=== PATIENT | male | born 1985 | race African-American/Black ===

== ENCOUNTER → 2020-03-09 10:31 | Outpatient (BNVA) | payer MEDICAID, SELFPAY | PROVIDERS: PCP Internal Medicine; Referring Provider Internal Medicine; Visit Provider Urology | DX: D57.1 Sickle-cell disease without crisis (principal); N48.30 Priapism, unspecified | CPT/HCPCS: 99212; J9217 ==

== ENCOUNTER → 2020-09-23 10:59 | Outpatient (BNVA) | payer MEDICAID, SELFPAY | PROVIDERS: PCP Internal Medicine; Visit Provider Urology ==

== ENCOUNTER → 2020-10-05 11:30 | Outpatient (BNVA) | payer MEDICAID, SELFPAY | PROVIDERS: PCP Internal Medicine; Visit Provider Urology | DX: N48.30 Priapism, unspecified (principal) | CPT/HCPCS: 96402; J9217 ==

== ENCOUNTER → 2021-12-08 11:26 | Outpatient (BNVA) | payer MEDICAID, SELFPAY | PROVIDERS: PCP Internal Medicine; Visit Provider Urology | DX: N48.30 Priapism, unspecified (principal); D57.1 Sickle-cell disease without crisis | CPT/HCPCS: 99212 ==

== ENCOUNTER → 2022-04-07 08:12 | Outpatient (BNVA) | payer MEDICAID, SELFPAY | PROVIDERS: PCP Internal Medicine; Visit Provider Urology | DX: N48.30 Priapism, unspecified (principal) | CPT/HCPCS: 99212; Q3014 ==

== ENCOUNTER → 2022-05-05 15:12 | Outpatient (BNVA) | payer MEDICAID, SELFPAY | PROVIDERS: PCP Internal Medicine; Visit Provider Urology | DX: Z13.89 Encounter for screening for other disorder (principal) ==

== ENCOUNTER → 2022-06-01 13:45 | Outpatient (BNVA) | payer MEDICAID, SELFPAY | PROVIDERS: PCP Internal Medicine; Visit Provider Urology | DX: Z13.89 Encounter for screening for other disorder (principal) ==

== ENCOUNTER → 2022-07-20 08:53 | Outpatient (BNVA) | payer MEDICAID, SELFPAY | PROVIDERS: PCP Internal Medicine; Visit Provider Urology ==

== ENCOUNTER → 2022-08-10 13:25 | Outpatient (BNVA) | payer MEDICAID, SELFPAY | PROVIDERS: PCP Internal Medicine; Visit Provider Urology ==

== ENCOUNTER → 2022-10-05 11:41 | Outpatient (BNVA) | payer MEDICAID, SELFPAY | PROVIDERS: PCP Internal Medicine; Visit Provider Urology ==

== ENCOUNTER 2023-01-19 11:09 | Outpatient (AMB) | payer MEDICAID, SELFPAY ==
--- NOTE | 2023-01-19 11:43 | MHC.OFFVIS ---
Intake Intake Visit Reasons: Priapism- yearly follow up Intake Note: Patient is present for follow up Urology Med: Antibiotic Allergy: None Blood Thinner: None Allergies No Known Allergies Allergy (Verified 10/05/22 11:42) Coding
--- NOTE | 2023-01-19 12:20 | MHC.OFFVIS ---
Intake Intake Visit Reasons: Priapism- yearly follow up Allergies No Known Allergies Allergy (Verified 10/05/22 11:42) Medication List - Last Reconciled 01/19/23 by Reginaldo Parisi MD baclofen 40 mg (2 x 20 mg) PO BEDTIME 90 days MDD 40 mg clonazepam 1 mg PO BEDTIME 30 days insulin syringe,safetyneedle As directed leuprolide (3 month) (Eligard) 22.5 mg subcut [id number] needle (disp) 22 G (BD Regular [place]vel [place]) As directed phenylephrine HCl 1 mg (0.1 mL) IM .every 10 min PRN prednisone 10 mg PO BID 30 days sodium chlor 0.9% bacteriostat 10mg/1ml (of phenylephrine) reconstituted in 10cc normal saline - 1.0cc reconstituted injected every 5 min till priapism resolved terbutaline 10 mg (2 x 5 mg) PO BEDTIME 90 days HPI HPI Comments History of Present Illness Details Lance Pedroza is a very pleasant afican male. He is a patient of Dr Jarrett. He is seen for the following urologic conditions. - sickle cell anemia with recurrent priapism - 01/29 has lost substantial weight with exercise. Finds the baclofen helpful. Would like to retry terbutaline with baclofen. Prescription provided - 09/29 follow-up from combination trial. Does find baclofen hopeful. Would like to continue while stopping other medications. 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 When this occurs the only emergent management available is direct injection of phenylephrine. Lance has experience with this form of therapy Without this form of therapy there is delay in treatment trying to access emergency departments with associated copays For this reason Lance has always maintained a small supply of injectable phenylephrine to use outside the hospital setting - which he has done on multiple occasions without any complications or issues - Narrative?review: pathogenesis, diagnosis, and treatment of?sleep-related?painful?erection. Jordan Vogel, Andriy Ramsey, Layla Rothman.Transl Androl Urol. 2020;10(12):3345-7576 Recurrent Priapism. Lance has a long history of this problem. He states back as far as 2008. Initially he had been seen and due to his stuttering priapism had been placed on Lupron. Known sickle cell. He was taken off Lupron. He responded well to combination of daily Cialis and finasteride. Eventually it he was no longer or responded to these medications. Subsequently he has been placed on combination of bicalutamide and ketoconazole to try to keep his testosterone down. He carries with him epinephrine in order to treat his almost daily priapism Due to the use of antiandrogen agents he developed gynecomastia. Underwent bilateral mastectomies approximately 2014. Has keloid scarring. T 1083 on flutamide and ketoconazole. LH 45, FSH 9 Lupron 05/11/16 testosterone 06/2016 5, LH 5 Lupron 10/24/1610/23 - full suppression. Testosterone 3. Does have erections and response to stimuli. + facial hair. 04/26 T 11 12/26 GnRH 06/26 GnRH - only occasional priapism 12/27 - Has phenylephrine. Prescription provided - 05/01 - trial combination baclofen and amitriptyline did have control during the day however recurrent at night - 06/01 trial combination amitriptyline with Tizanidine?(to block REM) - 06/29 Trial clonazepam with minimal effect GnRH administration 03/09/20 Review of Systems Const Denies chills and Denies fever(s) Card Reports no additional complaints and Denies syncope Resp Denies cough GI Denies abdominal pain and Denies heartburn Reports as per HPI and Denies change in libido Neuro Denies syncope Psych Denies change in libido Endo Denies change in libido Physical Exam Const General: cooperative, healthy appearing, comfortable and no acute distress Orientation/consciousness: patient oriented x3 HEENT Face and sinus: Yes normal facial exam Mouth: moist mucous membranes Neck Neck: Yes normal visual inspection, Yes full ROM and Yes trachea midline Chest Chest palpation & inspection: normal inspection of the chest Resp Effort & Inspection: normal respiratory effort, able to speak in complete sentences and no respiratory distress GI Inspection: Yes normal to inspection Back/Spine/Pelvis Cervical Spine: normal cervical lordosis Thoracic/Lumbar Spine: thoracic and lumbar spine normal to inspection Skin General skin exam: no rashes or lesions noted Neuro General: patient oriented x3, gait normal, tone normal and moves all extremities Extrem General: Yes normal to inspection and Yes capillary refill normal Assessment & Plan Assessment & Plan (1) Sickle cell anemia: Code(s): D57.1 - Sickle-cell disease without crisis Plan Six month follow-up Medications: New terbutaline 10 mg (2 x 5 mg) PO BEDTIME 180 tabs 1RF 90 days D57.1 - Sickle-cell disease without crisis, N48.30 - Priapism, unspecified Changed From baclofen takes 1x day 80 mg at night 20 mg PO QID 90 days 360 tabs 1RF MDD 80 mg To baclofen takes 1x day 40 mg at night 40 mg (2 x 20 mg) PO BEDTIME 180 tabs 1RF 90 days MDD 40 mg Discontinued bicalutamide Discontinued Reason: Patient Completed Course 50 mg PO .every other day PRN 90 tabs 0RF priapism Patient Instructions: Imaging studies, laboratory and physical exam results were discussed and reviewed in detail. No major barriers to patient understanding were identified. An opportunity to ask questions regarding the treatment plan was provided. All questions were answered. The patient expressed understanding and agreement with the above treatment plan. The patient is aware they should contact our office by phone for worsening of their current condition or the appearance of new urologic symptoms. Compliance is encouraged with any medications and followup testing that is ordered. It is a privilege to participate in the urologic care of your patient. If you have any questions or concerns regarding treatment for the above conditions, or other urologic issues, please do not hesitate to contact me. The office telephone contact is [phone]. This note is constructed using voice recognition software. While every effort has been made to ensure accuracy online advertising analyst errors may have been included. Yours sincerely, Dr Reginaldo Parisi MD, [facility] - Urology Providers of Expert, Compassionate Care for the Genitourinary System Coding Level of Care Code Est Pt Level 4 (51547) Diagnoses Sickle cell anemia D57.1
== END 2023-01-19 12:30 | disposition home or self-care (01) ==
PROVIDERS: PCP Internal Medicine; Visit Provider Urology
DX: D57.1 Sickle-cell disease without crisis (principal)
CPT/HCPCS: 99214

== ENCOUNTER → 2023-01-19 11:09 | Outpatient (BNVA) | payer MEDICAID, SELFPAY | PROVIDERS: Visit Provider Urology | DX: D57.1 Sickle-cell disease without crisis (principal) | CPT/HCPCS: 99212 ==

== ENCOUNTER 2023-01-25 15:30 | Outpatient (REF) | payer MEDICAID, SELFPAY ==
[2023-01-25 18:35] LABS: Alanine Aminotransferase 25 U/L (0-40); Albumin Level 4.4 g/dL (3.5-5.0); Alkaline Phosphatase 95 U/L (39-117); Anion Gap 15 (12-20); Aspartate Amino Transferase 49 U/L (5-37); Bilirubin Total 2.2 mg/dL (0.0-1.0); Blood Urea Nitrogen 10 mg/dL (9-16); Calcium 9.8 mg/dL (8.4-10.2); Carbon Dioxide 23 mmol/L (22-29); Chloride 103 mmol/L (96-108); Estimated Glomerular Filt Rate > 60; Glucose Random 88 mg/dL (60-115); Potassium 4.3 mmol/L (3.3-5.1); Sodium 137 mmol/L (135-145); Total Protein 8.1 g/dL (6.5-8.0)
[2023-01-25 18:42] LABS: Vitamin D 25-OH Total 35.5 ng/mL (>30)
== END 2023-01-25 15:31 | disposition home or self-care (01) ==
LOC: HO.CHCLDS 15:30
PROVIDERS: Visit Provider Internal Medicine
DX: Z00.00 Encounter for general adult medical examination without abnormal findings (principal); D57.1 Sickle-cell disease without crisis
CPT/HCPCS: 36415; 80053; 82306

== ENCOUNTER 2023-01-26 11:20 | Outpatient (REF) | payer MEDICAID, SELFPAY ==
[2023-01-26 14:46] LABS: Appearance Urine Clear; Color Urine Yellow; Glucose Urine UA Negative (Negative); Leukocyte Esterase Urine Negative (Negative); Nitrite Urine Negative (Negative); PH 7.5 (5.0-9.0); Specific Gravity - Urine 1.015 (1.005-1.025); Urine Blood Negative (Negative); Urine Ketones Negative (Negative); Urine Protein Negative (Neg-Trace)
[2023-01-26 14:53] LABS: Glucose Random 79 mg/dL (60-115)
[2023-01-29 04:06] LABS: HBS Num1 > 1000.00 mIU/mL (0-7.99); HBc Num1 0.07 S/CO (0.00-0.79); HBsAGNum1 0.28 S/CO (0.00-0.99); Hepatitis A Antibody IgM 0.34 Index (0-0.79); Hepatitis B Core Antibody Nonreactive (Nonreactive); Hepatitis B Surface Antigen Negative (Negative); ~HepC Num1 0.06 S/CO (0.00-0.79); ~Hepatitis A Antibody IgM Nonreactive (Nonreactive); ~Hepatitis B Surface Antibody REACTIVE (Nonreactive); ~Hepatitis C Antibody Nonreactive (Nonreactive)
== END 2023-01-26 11:21 | disposition home or self-care (01) ==
LOC: HO.CHCLDS 11:20
PROVIDERS: Visit Provider Internal Medicine
DX: Z00.00 Encounter for general adult medical examination without abnormal findings (principal); D57.1 Sickle-cell disease without crisis; R74.01 Elevation of levels of liver transaminase levels; Z83.3 Family history of diabetes mellitus
CPT/HCPCS: 36415; 81003; 82306; 82947; 86704; 86706; 86709; 86803; 87340

== ENCOUNTER 2023-06-06 15:06 | Outpatient (AMB) | payer MEDICAID, SELFPAY ==
--- NOTE | 2023-06-06 15:21 | A.OFFVIS_ITS ---
Intake Intake Visit Reasons: 6 month follow up Intake Note: Patient presents today for a follow-up Meds- None Allergies to Antibiotic- No Known Allergies Blood Thinner- None Recruitment Consultant Required: No Accompanied by: Self / Same As Patient Allergies No Known Allergies Allergy (Verified 06/06/23 15:28) HPI HPI Comments History of Present Illness Details Lance Pedroza is a very pleasant afican male. He is a patient of Dr Jarrett. He is seen for the following urologic conditions. - sickle cell anemia with recurrent pria pism - 06/01 has found stabilization with comb ination tuberculin and baclofen. Still gets nocturnal erections but finds exercise helps bring it down proximally 80% of the time. 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 Finds the baclofen helpful. Would like to retry terbutaline with baclofen. Prescription provided - 09/29 follow-up from combination trial. Does find baclofen hopeful. Would like to continue while stopping other medications. 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 When this occurs the only emergent management available is direct injection of phenylephrine. Lance has experience with this form of therapy Without this form of therapy there is delay in treatment trying to access emergency departments with associated copays For this reason Lance has always maintained a small supply of injectable phenylephrine to use outside the hospital setting - which he has done on multiple occasions without any complications or issues - Narrative?review: pathogenesis, diagnosis, and treatment of?sleep- related?painful?erection. Jordan Y, Andriy J, Layla H.Transl Androl Urol. 2020;10(17):4592-8165 Recurrent Priapism. Lance has a long history of this problem. He states back as far as 2008. Initially he had been seen and due to his stuttering priapism had been placed on Lupron. Karely nown sickle cell. He was taken off Lupron. He responded well to combination of daily Cialis and finasteride. Eventually it he was no longer or responded to these medications. Subsequently he has been placed on combination of bicalutamide and ketoconazole to try to keep his testosterone down. He carries with him epinephrine in order to treat his almost daily priapism Due to the use of antiandrogen agents he developed gynecomastia. Underwent bilateral mastectomies approximately 2014. Has keloid scarring. T 1083 on flutamide and ketoconazole. LH 45, FSH 9 Lupron 05/11/16 testosterone 06/2016 5, LH 5 Lupron 10/24/1610/23 - full suppression. Testosterone 3. Does have erections and response to stimuli. + facial hair. 04/26 T 11 12/26 GnRH 06/26 GnRH - only occasional priapism 12/27 - Has phenylephrine. Prescription provided - 05/01 - trial combination baclofen and amitriptyline did have control during the day however recurrent at night - 06/01 trial combination amitriptyline with Tizanidine?(to block REM) - 06/29 Trial clonazepam with minimal effect GnRH administration 03/09/20 Review of Systems Const Denies chills and Denies fever(s) Card Reports no additional complaints and Denies syncope Resp Denies cough GI Denies abdominal pain and Denies heartburn Reports as per HPI and Denies change in libido Neuro Denies syncope Psych Denies change in libido Endo Denies change in libido Physical Exam Const General: cooperative, healthy appearing, comfortable and no acute distress Orientation/consciousness: patient oriented x3 HEENT Face and sinus: Yes normal facial exam Mouth: moist mucous membranes Neck Neck: Yes normal visual inspection, Yes full ROM and Yes trachea midline Chest Chest palpation & inspection: normal inspection of the chest Resp Effort & Inspection: normal respiratory effort, able to speak in complete sentences and no respiratory distress GI Inspection: Yes normal to inspection Back/Spine/Pelvis Cervical Spine: normal cervical lordosis Thoracic/Lumbar Spine: thoracic and lumbar spine normal to inspection Skin General skin exam: no rashes or lesions noted Neuro General: patient oriented x3, gait normal, tone normal and moves all extremities Extrem General: Yes normal to inspection and Yes capillary refill normal Assessment & Plan Assessment & Plan (1) Priapism: Code(s): N48.30 - Priapism, unspecified (2) Sickle cell anemia: Code(s): D57.1 - Sickle-cell disease without crisis Plan Referral cardiology Continue medications Orders: Referrals Cardiology Referral D57.1 - Sickle-cell disease without crisis Patient Instructions: Imaging studies, laboratory and physical exam results were discussed and reviewed in detail. No major barriers to patient understanding were identified. An opportunity to ask questions regarding the treatment plan was provided. All questions were answered. The patient expressed understanding and agreement with the above treatment plan. The patient is aware they should contact our office by phone for worsening of their current condition or the appearance of new urologic symptoms. Compliance is encouraged with any medications and followup testing that is ordered. It is a privilege to participate in the urologic care of your patient. If you have any questions or concerns regarding treatment for the above conditions, or other urologic issues, please do not hesitate to contact me. The office telephone contact is [phone]. This note is constructed using voice recognition software. While every effort has been made to ensure accuracy statistical machine servicer errors may have been included. Yours sincerely, Dr Reginaldo Parisi MD, [facility] - Urology Providers of Expert, Compassionate Care for the Genitourinary System Coding Level of Care Code Est Pt Level 4 (72841) Diagnoses Priapism N48.30 Sickle cell anemia D57.1
== END 2023-06-06 16:03 | disposition home or self-care (01) ==
PROVIDERS: PCP Internal Medicine; Visit Provider Urology
DX: N48.30 Priapism, unspecified (principal); D57.1 Sickle-cell disease without crisis
CPT/HCPCS: 99214

== ENCOUNTER → 2023-06-06 15:06 | Outpatient (BNVA) | payer MEDICAID, SELFPAY | PROVIDERS: PCP Internal Medicine; Visit Provider Urology | DX: N48.30 Priapism, unspecified (principal); D57.1 Sickle-cell disease without crisis | CPT/HCPCS: 99212 ==

== ENCOUNTER 2023-07-24 13:08 | Outpatient (AMB) | payer MEDICAID, SELFPAY ==
--- OUTSIDE RECORDS SUMMARY | 2023-07-24 13:10 | XMS_ITS | Continuity of Care Document ---
Author Organization [facility] Address [address] [place] [address]- Care Team Providers Care Clean Rice Broker Name Role Phone Kolby PARSONS, Kirk Primary Care Physician Encounter [place] Date(s): 11/24/22 - 12/24/22 [facility] [address] [place] [id number]- Attending Physician: Kristy Carson Admitting Physician: AdmKristy shukla Referring Physician: AdmtrKristy Allergies, Adverse Reactions, Alerts No Known Allergies Immunizations Given and Recorded Vaccine Date Status Refusal Reason influenza virus vaccine, inactivated 01/22/14 Give n influenza virus vaccine, inactivated 01/23/13 Give n pneumococcal 23-valent vaccine 1, 2 04/24/10 Given 1Early/Late Reason: Other: 2Result Comment: given VIS Medications Folic Acid = 1 mg, Daily, 0 Refills Start Date: 11/10/08 Stop Date: 12/10/08 Status: Ordered oxyCODONE 30 mg oral tablet 1 tablet = 30 mg, By Mouth, Every 6 hours, PRN as needed for pain, # 56 tablet, 0 Refills, Maintenance, 12/15/22 17:53:00 EDT, Tablet, [id number], Partial fill upon patient request, 169.5, cm, 12/04/22 10:39:00 EDT, Height, 75.2, kg,... Start Date: 12/15/22 Stop Date: 12/29/22 Status: Ordered OxyCONTIN 10 mg oral tablet, extended release 10 mg, 1, tablet, By Mouth, Every 12 hours, do not crush or chew DX : sickle cell pain, # 28 tablet, Refills 0, Tot. Refills 0, Maintenance, 12/15/22 17:54:00 EDT, Route to Pharmacy Electronically, [facility] #[id number], Partial fill upon patie... Start Date: 12/15/22 Stop Date: 12/29/22 Status: Ordered Problem List Condition Confirmation Course Effective Dates Status Health St atus Informant Priapism Confirmed Active Sickle cell anemia Confirmed Active Vital Signs Most recent to oldest [Reference Range]: 1 Height 169.5 cm (06/20/18 10:47 AM) Weight 79.0 kg (06/20/18 10:47 AM) Pulse Rate [55-90 bpm] 59 bpm (06/20/18 10:47 AM) Body Mass Index [18.5-24.99] 27.5 *H* (06/20/18 10:47 AM) Blood Pressure [90-138/55-84 mm Hg] 133/ 78mm Hg (06/20/18 10:47 AM) Temperature [96.8-100.4 DegF] 97.5 DegF (06/20/18 10:47 AM) Blood pressure sites Arm, right (06/20/18 10:47 AM) Temperature Route Temporal (06/20/18 10:47 AM) Dry Weight 79.0 kg (06/20/18 10:47 AM) Weight Obtained Via Standing scale (06/20/18 10:47 AM) Dry Weight Obtained Via Standing scale (06/20/18 10:47 AM) Social History Social History Type Response Smoking Status Never smoker entered on: 10/05/14 Sex Radiology * Event Display: CT Scan Abdomen, Non- Authored Date: * Event Display: MRI Head, Non- Authored Date: Patient Care team information Care Team Personnel Name: Roslyn Lang Position: [facility] Onco RN Member Role: Primary Care Nurse Name: Kirk Jarrett MD Position: [facility] Outreach Member Role: PCP Address: Address: [address] [place] [id number]- Care Team Related Persons Name: DINA RENEE Name: KATHARINA DOBBS Address: [place] [address]
--- OUTSIDE RECORDS SUMMARY | 2023-07-24 13:10 | XMS_ITS | Continuity of Care Document ---
Author Organization [facility] ter Address [address] [place] [address]- Care Team Providers Care Setter Helper Name Role Phone Kirk Jarrett MD Primary Care Physician Encounter [facility] Date(s): 02/18/23 - 02/19/[address] [address]- Encounter Diagnosis Sickle cell pain crisis(Final) - 02/19/23 Discharge Disposition: A-D/C Home Attending Physician: Kaleigh Stroud MD Admitting Physician: Genoveva Echevarria MD Referring Physician: Not on Staff, Referring MD Allergies, Adverse Reactions, Alerts No Known Allergies Immunizations Given and Recorded Vaccine Date Status Refusal Reason influenza virus vaccine, inactivated 01/22/14 Give n influenza virus vaccine, inactivated 01/23/13 Give n pneumococcal 23-valent vaccine 1, 2 04/24/10 Given 1Early/Late Reason: Other: 2Result Comment: given VIS Medications Dilaudid Inj 2 mg, Injection, IV Push Slowly, Every 15 minutes for 3 doses/times, PRN for Pain , Moderate, and SBP greater than 100, Routine, 02/19/23 0:26:00 EST, Stop date Limited # of times Start Date: 02/19/23 Stop Date: 02/19/23 Status: Discontinued Dilaudid Inj 2 mg, Injection, IV Push Slowly, Every 4 hours, PRN for Pain , Severe, Routine, 02/19/23 2:16:00 EST Start Date: 02/19/23 Stop Date: 02/19/23 Status: Discontinued Folic Acid = 1 mg, Daily, 0 Refills Start Date: 11/10/08 Stop Date: 12/10/08 Status: Ordered oxyCODONE 30 mg oral tablet 1 tablet = 30 mg, By Mouth, Every 6 hours, PRN as needed for pain, # 56 tablet, 0 Refills, Maintenance, 02/09/23 17:53:00 EDT, Tablet, [id number], Partial fill upon patient request, 169.5, cm, 12/04/22 10:39:00 EDT, Height, 75.2, kg,... Start Date: 02/09/23 Stop Date: 02/23/23 Status: Ordered OxyCONTIN 10 mg oral tablet, extended release 10 mg, 1, tablet, By Mouth, Every 12 hours, do not crush or chew DX : sickle cell pain, # 28 tablet, Refills 0, Tot. Refills 0, Maintenance, 02/09/23 17:54:00 EDT, Route to Pharmacy Electronically, [id number], Partial fill upon patie... Start Date: 02/09/23 Stop Date: 02/23/23 Status: Ordered Problem List Condition Confirmation Course Effective Dates Status Health St atus Informant Priapism Confirmed Active Sickle cell anemia Confirmed Active Results Radiology Reports * Exam Date Time Procedure Performing Provider Status 02/18/23 11:26 PM US Doppler Ext Upper Venous Left Shay Munguia; Auth (Verified) Notes: (US Doppler Ext Upper Venous Left) Reason For Exam: Pain in limb;Other: RESULT: US Doppler Ext Upper Venous Left US Doppler Ext Upper Venous Left Hx of Present Illness: Sickle cell crisis; Reason: Other:; Pain in limb; Clinical Question(s): Thrombosis COMPARISON: None. IMAGING TECHNIQUE: Ultrasound examination of the upper extremity deep venous system was performed using grayscale, color, and spectral wave analysis including response to compression. Assessment includes the contralateral jugular and subclavian vein. FINDINGS: Internal jugular vein: Patent. No thrombosis. Subclavian vein: Patent. No thrombosis. Axillary vein: Patent. No thrombosis. Brachial vein: Patent. No thrombosis. Basilic vein: Patent. No thrombosis. Cephalic vein: Patent. No thrombosis. Contralateral internal jugular vein: Patent. No thrombosis. Contralateral subclavian vein: Patent. No thrombosis. IMPRESSION: No evidence of venous thrombosis. I have personally reviewed the images and I agree with this report. WSN: [id number] Ordering Physician: Jaciel Geiger Dictated By: Gianna Moseley MD Dictated Date/Time: 02/18/23 11:34 p Reviewed By: Brice Benítez MD Signed By: Brice Benítez MD Signed Date/Time: 02/18/23 11:39 pm Transcribed By: CSB Transcribed Date/Time: 02/18/23 11:31 pm * Exam Date Time Procedure Performing Provider Status 02/18/23 10:58 PM Shoulder Min 2 Views Left Jody Marco; Auth (Verified) Notes: (Shoulder Min 2 Views Left) Reason For Exam: Pain RESULT: Shoulder Min 2 Views Left Shoulder Min 2 Views Left, 2 views Hx of Present Illness: SCC; Reason: Pain; Clinical Question(s): Aseptic Necrosis COMPARISON: None. FINDINGS: No fracture or dislocation. No arthritic change of the glenohumeral joint. Normal AC joint and portions of the clavicle included on the exam. No calcification of the rotator cuff. IMPRESSION: Normal. WSN: [id number] Ordering Physician: Jaciel Geiger Dictated By: Yanelis Miller MD Dictated Date/Time: 02/18/23 11:23 p Reviewed By: Yanelis Miller MD Signed By: Yanelis Miller MD Signed Date/Time: 02/18/23 11:23 pm Transcribed By: TINY Transcribed Date/Time: 02/18/23 11:22 pm * Exam Date Time Procedure Performing Provider Status 02/18/23 10:58 PM Elbow Min 3 Views Left Andres Vera ; Auth (Verified) Notes: (Elbow Min 3 Views Left) Reason For Exam: Pain RESULT: Elbow Min 3 Views Left Elbow Min 3 Views Left, 3 views Hx of Present Illness: SCC; Reason: Pain; Clinical Question(s): Aseptic Necrosis COMPARISON: None. FINDINGS: No fracture or dislocation. No arthritic changes. No joint effusion. IMPRESSION: Normal. WSN: [id number] Ordering Physician: Jaciel Geiger Dictated By: Yanelis Miller MD Dictated Date/Time: 02/18/23 11:22 p Reviewed By: Yanelis Miller MD Signed By: Yanelis Miller MD Signed Date/Time: 02/18/23 11:22 pm Transcribed By: CSB Transcribed Date/Time: 02/18/23 11:21 pm * Exam Date Time Procedure Performing Provider Status 02/18/23 10:58 PM Chest 2 Views Frontal and Lat Andres Vera; Auth (Verified) Notes: (Chest 2 Views Frontal and Lat) Reason For Exam: Shortness of Breath, Fever;Other: RESULT: Chest 2 Views Frontal and Lat Chest 2 Views Frontal and Lat Hx of Present Illness: SCC; Reason: Other:; Shortness of Breath, Fever; Clinical Question(s): Pneumonia COMPARISON: X-ray 11/23/2017 FINDINGS: LINES AND TUBES: None. LUNGS AND PLEURA: Clear lungs. Normal pulmonary vascularity. No pleural effusion. No pneumothorax. HEART, MEDIASTINUM AND JOSE ELIAS: Heart is normal in size. Normal mediastinal and hilar contour. BONES AND SOFT TISSUES: No acute abnormality. IMPRESSION: No acute abnormality. WSN: [id number] Ordering Physician: Jaciel Geiger Dictated By: Brice Benítez MD Dictated Date/Time: 02/18/23 11:06 p Reviewed By: Brice Benítez MD Signed By: Brice Benítez MD Signed Date/Time: 02/18/23 11:06 pm Transcribed By: TINY Transcribed Date/Time: 02/18/23 11:05 pm Vital Signs Most recent to oldest [Reference Range]: 1 2 3 Height 170 cm (02/18/23 11:42 PM) 170 cm (02/18/23 9:20 PM) 170 cm (02/18/23 6:49 PM) Weight 75 kg (02/18/23 11:42 PM) 75 kg (02/18/23 9:20 PM) 75 kg (02/18/23 6:49 PM) Oxygen Saturation [94-100 %] 100 % (02/18/23 11:42 PM) 100 % (02/18/23 9:20 PM) 99 % (02/18/23 9:00 PM) Pulse Rate [55-90 bpm] 78 bpm (02/18/23 11:42 PM) 84 bpm (02/18/23 9:20 PM) 85 bpm (02/18/23 9:00 PM) Body Mass Index [18.5-24.99 kg/m2] 25.95 kg/m2 *H* (02/18/23 11:42 PM) 25.95 kg/m2 *H* (02/18/23 9:20 PM) 25.95 kg/m2 *H* (02/18/23 6:49 PM) Blood Pressure [90-138/55-84 mm Hg] 144/65mm Hg *H* (02/18/23 11:42 PM) 113/83mm Hg (02/18/23 9:20 PM) 131/74mm Hg (02/18/23 9:00 PM) Respiratory Rate [16-30 br/min] 18 br/min (02/19/23 1:51 AM) 18 br/min (02/19/23 12:13 AM) 20 br/min (02/18/23 11:42 PM) Temperature [96.8-100.4 DegF] 99.2 DegF (02/18/23 11:42 PM) 100 DegF (02/18/23 9:20 PM) 99.4 DegF (02/18/23 9:00 PM) Mode of Delivery (Oxygen) Room air (02/18/23 11:42 PM) Room air (02/18/23 9:20 PM) Room air (02/18/23 9:00 PM) Blood pressure sites Arm, right (02/18/23 11:42 PM) Arm, right (02/18/23 9:20 PM) Arm, right (02/18/23 9:00 PM) Temperature Route Oral (02/18/23 11:42 PM) Oral (02/18/23 9:20 PM) Oral (02/18/23 9:00 PM) Dry Weight 75 kg (02/18/23 11:42 PM) 75 kg (02/18/23 9:20 PM) 75 kg (02/18/23 6:49 PM) Weight Obtained Via Patient/family state d (02/18/23 6:49 PM) Dry Weight Obtained Via Patient/family s tated (02/18/23 6:49 PM) Social History Social History Type Response Smoking Status Never smoker entered on: 10/05/14 Sex EKG study * Event Display: EKG Authored Date: Patient Care team information Care Team Personnel Name: Roslyn Lang Position: [facility] Onco RN Member Role: Primary Care Nurse Name: Kirk Jarrett MD Position: [facility] Outreach Member Role: PCP Address: Address: [address] [place] [id number] Name: *Mariluz LEWIS Attending Position: [facility] ED Medicine MD Name: Samantha Garza LPN Position: [facility] ED RN W/OE and Tasks Member Role: Patient Care Provider Name: Sumaya Dial Position: [facility] ED RN W/OE and Tasks Member Role: Patient Care Provider Name: Ada Goyal Position: [facility] Associate Professional Member Role: ED Physician Support Manager Address: Address: [address] [place] [address] [address] Care Team Related Persons Name: DINA RENEE Name: KATHARINA DOBBS Address: [place] [address]
--- OUTSIDE RECORDS SUMMARY | 2023-07-24 13:10 | XMS_ITS | Continuity of Care Document ---
Author Organization [facility] Address [address] [place] [address]- Care Team Providers Care Manpower Development Specialist Name Role Phone Kolby PARSONS, Kirk Primary Care Physician Encounter [facility] Date(s): 11/24/22 - 02/03/23 [facility] Care [address] [place] [id number] Discharge Disposition: A-D/C Home Attending Physician: Emilee PARSONS(Hem/Onc), Williams Rothman Admitting Physician: Emilee PARSONS(Hem/Onc), Williams Rothman Referring Physician: Kirk Jarrett MD Allergies, Adverse Reactions, Alerts No Known [...] pain, # 56 tablet, 0 Refills, Maintenance, 01/26/23 17:53:00 EDT, Tablet, [email or web address] #[id number], Partial fill upon patient request, 169.5, cm, 12/04/22 10:39:00 EDT, Height, 75.2, kg,... Start Date: 01/26/23 Stop Date: 02/09/23 Status: Ordered OxyCONTIN 10 mg oral tablet, extended release 10 mg, 1, tablet, By Mouth, Every 12 hours, do not crush or chew DX : sickle cell pain, # 28 tablet, Refills 0, Tot. Refills 0, Maintenance, 01/26/23 17:54:00 EDT, Route to Pharmacy Electronically, [email or web address] #[id number], Partial fill upon patie... Start Date: 01/26/23 Stop Date: 02/09/23 Status: Ordered Problem List Condition Confirmation Course Effective Dates Status Health St atus Informant Priapism Confirmed Active Sickle cell anemia Confirmed Active Vital Signs Most recent to oldest [Reference Range]: 1 Height 169.5 cm (12/04/22 10:39 AM) Weight 75.2 kg (12/04/22 10:39 AM) Oxygen Saturation [94-100 %] 99 % (12/04/22 10:39 AM) Pulse Rate [55-90 bpm] 65 bpm (12/04/22 10:39 AM) Body Mass Index [18.5-24.99 kg/m2] 26.17 kg/m2 *H* (12/04/22 10:39 AM) Blood Pressure [90-138/55-84 mm Hg] 121/ 76mm Hg (12/04/22 10:39 AM) Temperature [96.8-100.4 DegF] 99.1 DegF (12/04/22 10:39 AM) Mode of Delivery (Oxygen) Room air (12/04/22 10:39 AM) Blood pressure sites Arm, right (12/04/22 10:39 AM) Temperature Route Oral (12/04/22 10:39 AM) Dry Weight 75.2 kg (12/04/22 10:39 AM) Weight Obtained Via Standing scale (12/04/22 10:39 AM) Dry Weight Obtained Via Standing scale (12/04/22 10:39 AM) Social History Social History Type Response Smoking Status Never smoker entered on: 10/05/14 Sex Note * Natalya Carbone: PERFORM, SIGN, VERIFY Event Display: Patient Education/Instruction Authored Date: [id number] [facility] *Heme/Onc Adult Clinical Summary Name RALPH DOBBS Age 37 Years 1985 PCP Kolby PARSONS , Kirk PCP Visit Date 11/24/2022 16:43:00 Additional Instructions: Scheduled Appointments?? Future Appointments ?No Future Appointments Scheduled Follow-Up Instructions ?? With: Address: When: Williams Hebert [address] [facility] [place] [address] Business (1) 09/24/2023 10:30 AM Diagnosis Sickle-cell disease without crisis Medications: Please continue your medications until treatment is completed or stopped by your provider. Discuss any questions related to medications with your provider. New Medications [email or web address] #[id number], [address] [place], [place] [id number], [phone] Oxycodone (oxyCODONE 30 mg oral tablet) 1 tab(s) Oral every 6 hours as needed as needed for pain for 14 Days. Refills: 0. Next Dose: Oxycodone (OxyCONTIN 10 mg oral tablet, extended release) 1 tab(s) Oral every 12 hours for 14 Days.do not crush or chew DX : sickle cell pain. Refills: 0. Next Dose: Medications to Continue with No Changes These medications were not printed or sent to your pharmacy Folic Acid 1 Milligram Daily. Next Dose: Allergy Info:?? NKA Medications Given This Visit Future Orders ?No future orders Vital Signs Height 169.5 cm Weight 75.2 kg BMI 26.17 kg/m2 Blood Pressure 121 mm Hg/76 mm Hg Temperature 99.1 DegF Pulse Rate 65 bpm Respiratory Rate 02 Sat Mode of Delivery 99 %/Room air You can now view a summary of your hospital visit from the comfort of your home through a free online portal called [employer]. [employer] is a website that allows you to securely view your medical information including discharge summary, medications and follow-up visits. ??You can alsosend a secure electronic message to your doctor???s office to request appointments, renew medications or just ask a question. You can enroll at [email or web address] or register during your next office visit. Disclaimer:?? The information provided is of a general nature and is intended to be used in conjunction with the recommendations and advice of your health care practitioner. ??Every effort has been made to ensure that the information provided is accurate and complete at the time it is provided to you however, as your needs change, or, as new ??information becomes available, different or additional instructions may be required. If you have questions, please consult with your primary care provider or pharmacist, as appropriate. ??This information is not intended to serve as substitution for assessment and evaluation by a qualified health care provider. If you do not have a primary care provider, you may find a [facility] provider by calling [facility] [employer] [facility] at [phone]. [facility], in keeping with [facility] guidance, no longer requires face masks for staff, patientsor visitors in most situations. Similar to time spent indoors at other locations, there is the chance that you were exposed to respiratory viruses during your time with us (such as flu or COVID-19).? If you develop symptoms concerning for a viral respiratory infection, please seek testing (and treatment if indicated) from your medical provider or home test kit. For information about the plan of care including goals and instructions for your diagnosis, please see the patient education orders section of this document. Patient Education Materials?? The content of this educational material or handout may have been modified, supplemented, or adapted from its original content and format to support your individualized medical care. Patient Care team information Care Team Personnel Name: Roslyn Lang Position: [facility] Onco RN Member Role: Primary Care Nurse Name: Kirk Jarrett MD Position: [facility] Outreach Member Role: PCP Address: Address: [address] [place] [address]- Name: Emilee PARSONS(Hem/Onc)Williams Position: [facility] Physician - Oncology Med Service: Hematology & Oncology Member Role: Admitting Physician Address: Address: [address] [place] [address] for Cancer Care [facility] [place] [address]- Care Team Related Persons Name: DINA RENEE Name: KATHARINA DOBBS Address: [place] [address]
--- NOTE | 2023-07-24 13:11 | MHC.OFFVIS ---
Intake Intake Visit Reasons: 6M Follow Up(Confirmed) Intake Note: Patient is Present for Telephone Follow Up Urology Med:None Antibiotic Allergy: None Blood Thinner:None Allergies No Known Allergies Allergy (Verified 07/24/23 13:11) Medication List - Last Reconciled 07/24/23 by Reginaldo Parisi MD baclofen 40 mg (2 x 20 mg) PO BEDTIME 90 days MDD 40 mg insulin syringe,safetyneedle As directed phenylephrine HCl 1 mg (0.1 mL) IM .every 10 min PRN sodium chlor 0.9% bacteriostat 10mg/1ml (of phenylephrine) reconstituted in 10cc normal saline - 1.0cc reconstituted injected every 5 min till priapism resolved terbutaline 10 mg (2 x 5 mg) PO BEDTIME 90 days HPI HPI Comments History of Present Illness Details Lance Pedroza is a very pleasant male. He is a patient of Dr Jarrett. He is seen for the following urologic conditions. - sickle cell anemia with recurrent priapism Telemedicine Evaluation 15 min Consultation Loyalis Ella Video - 07/31 responding to high hydration and medications. Does 80 pushups in the morning if has erection. - 06/02 has found stabilization with combination tuberculin and baclofen. Still gets nocturnal erections but finds exercise helps bring it down proximally 80% of the time. Only using injectable phenylephrine every few weeks Needs cardiology referral as father has been diagnosed with non complicated ventricular hypertrophy which is apparently an inherited form of heart failure - 01/29 has lost substantial weight with exercise. Finds the baclofen helpful. Would like to retry terbutaline with baclofen. Prescription provided - 09/29 follow-up from combination trial. Does find baclofen hopeful. Would like to continue while stopping other medications. 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 When this occurs the only emergent management available is direct injection of phenylephrine. Lance has experience with this form of therapy Without this form of therapy there is delay in treatment trying to access emergency departments with associated copays For this reason Lance has always maintained a small supply of injectable phenylephrine to use outside the hospital setting - which he has done on multiple occasions without any complications or issues - Narrative?review: pathogenesis, diagnosis, and treatment of?sleep-related?painful?erection. Jordan Y, Andriy J, Layla H.Transl Androl Urol. 2020;10(69):[id number] Recurrent Priapism. Lance has a long history of this problem. He states back as far as 2008. Initially he had been seen and due to his stuttering priapism had been placed on Lupron. Known sickle cell. He was taken off Lupron. He responded well to combination of daily Cialis and finasteride. Eventually it he was no longer or responded to these medications. Subsequently he has been placed on combination of bicalutamide and ketoconazole to try to keep his testosterone down. He carries with him epinephrine in order to treat his almost daily priapism Due to the use of antiandrogen agents he developed gynecomastia. Underwent bilateral mastectomies approximately 2014. Has keloid scarring. T 1083 on flutamide and ketoconazole. LH 45, FSH 9 Lupron 05/11/16 testosterone 06/2016 5, LH 5 Lupron 10/24/1610/23 - full suppression. Testosterone 3. Does have erections and response to stimuli. + facial hair. 04/26 T 11 12/26 GnRH 06/26 GnRH - only occasional priapism 12/27 - Has phenylephrine. Prescription provided - 05/01 - trial combination baclofen and amitriptyline did have control during the day however recurrent at night - 06/01 trial combination amitriptyline with Tizanidine?(to block REM) - 06/29 Trial clonazepam with minimal effect GnRH administration 03/09/20 Assessment & Plan Assessment & Plan (1) Sickle cell anemia: Code(s): D57.1 - Sickle-cell disease without crisis (2) Priapism: Code(s): N48.30 - Priapism, unspecified Plan Continue good success combination medications plus hydration plus exercise Medications: Refilled terbutaline 10 mg (2 x 5 mg) PO BEDTIME 90 days 180 tabs 1RF D57.1 - Sickle-cell disease without crisis, N48.30 - Priapism, unspecified baclofen takes 1x day 40 mg at night 40 mg (2 x 20 mg) PO BEDTIME 90 days 180 tabs 1RF MDD 40 mg D57.1 - Sickle-cell disease without crisis Discontinued leuprolide (3 month) (Eligard) Discontinued Reason: Patient Completed Course 22.5 mg subcut [id number] 1 ea 0RF Priapism secondary to sickle cell needle (disp) 22 G (BD Regular Bevel Sh[place]) Discontinued Reason: Patient Completed Course As directed 30 ea 0RF Patient Instructions: Imaging studies, laboratory and physical exam results were discussed and reviewed in detail. No major barriers to patient understanding were identified. An opportunity to ask questions regarding the treatment plan was provided. All questions were answered. The patient expressed understanding and agreement with the above treatment plan. The patient is aware they should contact our office by phone for worsening of their current condition or the appearance of new urologic symptoms. Compliance is encouraged with any medications and followup testing that is ordered. It is a privilege to participate in the urologic care of your patient. If you have any questions or concerns regarding treatment for the above conditions, or other urologic issues, please do not hesitate to contact me. The office telephone contact is [phone]. This note is constructed using voice recognition software. While every effort has been made to ensure accuracy paediatric thoracic physician errors may have been included. Yours sincerely, Dr Reginaldo Parisi MD, [facility] - Urology Providers of Expert, Compassionate Care for the Genitourinary System Telehealth Telehealth Location of provider rendering services: practice address Location of patient: address on file Patient Identification confirmed using: Name, : Yes Telehealth method: video Patient verbally consented to treatment: Yes Patient verbally consented to billing insurance company: Yes Patient informed of any privacy concerns related to visit: Yes Minutes spent on Phone/Video with Pt.: 15 Coding Level of Care Code Tele Est Pt Level 3 (55902) Diagnoses Sickle cell anemia D57.1 Priapism N48.30
== END 2023-07-24 13:42 | disposition home or self-care (01) ==
LOC: HO.HUSH 13:08
PROVIDERS: PCP Internal Medicine; Visit Provider Urology
DX: D57.1 Sickle-cell disease without crisis (principal); N48.30 Priapism, unspecified
CPT/HCPCS: 99213

== ENCOUNTER → 2023-07-24 13:08 | Outpatient (BNVA) | payer MEDICAID, SELFPAY | PROVIDERS: PCP Internal Medicine; Visit Provider Urology ==

== ENCOUNTER 2023-10-30 13:56 | Outpatient (REF) | payer MEDICAID, SELFPAY ==
[2023-10-30 20:29] LABS: CDiff Gene PCR POSITIVE (Negative); CDiff Toxin Negative (Negative)
[2023-10-30 20:30] LABS: CDIFF Internal ctrl Dots and bkg OK (V)
== END 2023-10-30 13:57 | disposition home or self-care (01) ==
LOC: HO.HHCLNP 13:56
PROVIDERS: Visit Provider Internal Medicine
DX: Z13.89 Encounter for screening for other disorder (principal)
CPT/HCPCS: 87324; 87493

== ENCOUNTER 2023-10-31 16:00 | Outpatient (REF) | payer MEDICAID, SELFPAY ==
[2023-10-31 18:25] LABS: MANUAL DIFF FLAG NO
[2023-10-31 18:37] LABS: Basophils Percent Auto 0.5 % (0-2); Eosinophils Percent Auto 0.4 % (0-4); Hematocrit 33.4 % (42.0-52.0); Hemoglobin 12.3 g/dl (14.0-18.0); Imm Gran Abs Auto 0.02 X10*3/uL (0.00-0.03); Imm Gran Pct Auto 0.3 % (0.0-0.4); Lymphocytes Percent Auto 26.7 % (20-40); Mean Corpuscular HGB Conc 36.8 g/dl (31.0-36.0); Mean Corpuscular Hemoglobin 27.6 pg (27.0-33.0); Mean Corpuscular Volume 74.9 fL (80.0-98.0); Mean Platelet Volume 11.2 fL (9.4-12.4); Monocytes Absolute Auto 0.6 X10*3/uL (0.1-1.2); Monocytes Percent Auto 7.5 % (2-11); Neutrophils Percent Auto 64.6 % (45-73); Platelet Count 218 X10*3/uL (160-400); Red Blood Count 4.46 X10*6/uL (4.60-5.80); Red Cell Distribution Width 16.5 % (11.0-16.0); White Blood Count 7.7 X10*3/uL (4.8-10.8)
[2023-10-31 19:06] LABS: NRBC Pct Auto 4.1 /100WBC (0.0-0.2)
[2023-11-01 20:09] LABS: Immunoglobulin A 186 mg/dL (47-310); Transglutaminase IgA <1.0 U/mL
== END 2023-10-31 16:01 | disposition home or self-care (01) ==
LOC: HO.CHCLDS 16:00
PROVIDERS: Visit Provider Internal Medicine
DX: R19.7 Diarrhea, unspecified (principal)
CPT/HCPCS: 36415; 82784; 85025; 86364; 86684

== ENCOUNTER 2023-11-02 13:01 | Outpatient (REF) | payer MEDICAID, SELFPAY ==
--- NOTE | ~2023-11-02 | XR_ITS ---
EXAMINATION: XR CHEST CLINICAL INFORMATION: Follow-up pneumonia. COMPARISON: 10/04/2013 TECHNIQUE: 2 views of the chest were obtained. FINDINGS: The lungs are well expanded. No focal consolidation. No pleural effusion. Cardiac silhouette is unchanged. XR/XR chest 2V IMPRESSION: No acute abnormality.
[2023-11-02 15:56] LABS: Leukocytes Stool Qualitative NEGATIVE (NEGATIVE)
== END 2023-11-02 13:02 | disposition home or self-care (01) ==
LOC: HO.HHCX 13:01
PROVIDERS: Visit Provider Internal Medicine
DX: R19.7 Diarrhea, unspecified (principal); J15.9 Unspecified bacterial pneumonia
CPT/HCPCS: 71046; 87177; 87209; 87329; 89055

== ENCOUNTER → 2023-12-26 12:51 | Outpatient (REF) | payer MEDICAID, SELFPAY ==
--- NOTE | 2023-12-26 12:54 | CA_ITS ---
Transthoracic Echocardiogram Patient (Last, First, Middle): Lance Pedroza, Gender: Male Date of : 1985 Age: 38 Procedure Date: 12/26/2023 Procedure Type: Transthoracic Echocardiogram Location: OP Height: 172.72 cm Weight: 69.4 kg BSA: 1.82 m2 Heart Rate: bpm BP: 120 / 80 mmHg Broomcorn Sorter: EUGENIA Tirado MD: Kirk Jarrett MD Retail Property Manager: René Ferro MD Symptoms: D57.1 SIUCKLE CELL DISEASE W/O CRISIS FAM HX VENTRICULARHYPERTROPHY,HF Study Quality: Good ECG Rhythm: Sinus Conclusions: - Essentially normal study with mild left atrial enlargement Findings Left Ventricle Normal left ventricular size, thickness, and systolic function. The visually estimated ejection fraction is between 55-60%. Spectral Doppler is indicative of a normal filling pattern. Right Ventricle Normal right ventricular cavity size and systolic function. Atria The left atrium is mildly dilated. There is no evidence of interatrial shunt. The right atrium is normal in size. Aortic Valve Normal aortic valve structure and function. There is no aortic valve stenosis. There is no aortic valve regurgitation. Mitral Valve Normal mitral valve structure and function. There is trace mitral valve regurgitation. There is no mitral valve stenosis. Pulmonic Valve The pulmonic valve is likely normal. There is trace pulmonic valve regurgitation. Tricuspid Valve Normal tricuspid valve structure. There is trace tricuspid valve regurgitation. The right ventricular systolic pressure is normal. The right ventricular systolic pressure is 19 mmHg. Normal right atrial pressure. There is no evidence of pulmonary hypertension. Great Vessels All visible segments of the aorta are normal in size. There is no dilatation of the ascending aorta measuring 3.20 cm. The visualized portions of the pulmonary artery and branches are normal. Venous The inferior vena cava is normal in size and collapses greater than 50% with inspiration. Pericardium/Pleural There is no evidence of pericardial effusion. Prior Study Comparison No prior study available for comparison. Measurements 2D Linear Measurements IVSd: 1.26 0.6-0.9/0.6-1.0 cm LVIDd: 4.56 3.9-5.3/4.2-5.9 cm LVIDd Index: 2.51 2.4-3.2/2.2-3.1 cm/m2 LVIDs: 3.10 2.0-3.6 cm LVPWd: 1.10 0.7-1.1 cm Ao Root: 3.80 2.1-3.5 cm LA Diam: 4.00 2.7-3.8/3.0-4.0 cm LAIDs Index: 2.20 1.5-2.3 cm/m2 LV Mass: 246.02 67-162/88-224 g LV Mass Index: 135.17 43-95/49-115 g/m2 LVOT Diam: 2.10 3.0+(-)1.3 cm 2D Systolic Function EF 4C: 59.80 >55% EF 2C: 55.20 >55% EF BiP: 57.40 >55% Mitral Valve MV Pk E: 0.77 MV PK A: 0.47 MV Decel Time: 221.00 E/A: 1.70 E'Lateral: 14.90 E'Medial: 8.81 E/E' Med: 8.80 E/E' Lat: 5.20 PHT: 65.00 MVA PHT: 3.38 Decel [place]: 3.50 Aortic Valve AoV Pk Frank: 1.29 AoV Mn Frank: 0.93 AoV VTI: 0.27 AoV Pk Grad: 7.00 Aov Mn Grad: 4.00 KRISTINE Cont.VTI: 2.68 LVOT LVOT Pk Frank: 0.96 LVOT Mn Frank: 0.61 LVOT VTI: 0.21 LVOT Pk Grad: 4.00 LVOT Mn Grad: 2.00 LVOT Diam: 2.10 LVOT Area: 3.46 Diastolic Function MV Pk E: 0.77 MV Pk A: 0.47 E/A: 1.70 E'Medial: 8.81 E/E' Med: 8.80 E' Laterial: 14.90 E/E' Lat: 5.20 Right Ventricle TAPSE (mm): 20.00 TVS' Frank: 12.70 Tricuspid Valve TR Pk Frank: 1.67 TR Pk Grad: 11.00 RA Press: 8.00 RVSP: 19.00 Great Vessels Aorta Ao Root-2D: 3.80 2.0-3.7 cm Ao Asc: 3.20 2.1-3.4 cm Ao Arch: 2.90 Updated in Other Vendor System with Status of Final René Ferro MD electronically signed on 12/27/2023 10:46:24 AM with status of Final
== END ==
LOC: HO.CARD 12:51
PROVIDERS: PCP Internal Medicine; Visit Provider Internal Medicine
DX: D57.1 Sickle-cell disease without crisis (principal)
CPT/HCPCS: 93306

== ENCOUNTER → 2023-12-26 12:54 | Outpatient (BNV) | payer MEDICAID, SELFPAY | PROVIDERS: PCP Internal Medicine; Visit Provider Internal Medicine Cardiovascular Disease | DX: I51.89 Other ill-defined heart diseases (principal); D57.1 Sickle-cell disease without crisis; Z82.49 Family history of ischemic heart disease and other diseases of the circulatory system | CPT/HCPCS: 93306 ==

== ENCOUNTER 2024-01-23 13:39 | Outpatient (AMB) | payer MEDICAID, SELFPAY ==
--- NOTE | 2024-01-23 13:52 | MHC.OFFVIS ---
Intake Visit Reasons: 6m follow up Intake Note: Patient is present for follow up Urology Med: Terbutaline, Baclofen Antibiotic Allergies:None Blood Thinner:None Retail Gift Card Merchandising Required: No Accompanied by: Self / Same As Patient Allergies No Known Allergies Allergy (Verified 07/24/23 13:11) HPI Comments Details: Lance Pedroza is a very pleasant male. He is a patient of Dr Jarrett. He is seen for the following urologic conditions. - sickle cell anemia with recurrent priapism - 01/30 - has figured out a way to manage his priapism with combination of medications plus beets + vasodilator - refill prescription, six-month follow-up - 07/31 responding to high hydration and medications. Does 80 pushups in the morning if has erection. - 06/02 has found stabilization with combination turbutaline and baclofen. Still gets nocturnal erections but finds exercise helps bring it down proximally 80% of the time. Only using injectable phenylephrine every few weeks Needs cardiology referral as father has been diagnosed with non complicated ventricular hypertrophy which is apparently an inherited form of heart failure - 01/29 has lost substantial weight with exercise. Finds the baclofen helpful. Would like to retry terbutaline with baclofen. Prescription provided - 09/29 follow-up from combination trial. Does find baclofen hopeful. Would like to continue while stopping other medications. 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 When this occurs the only emergent management available is direct injection of phenylephrine. Lance has experience with this form of therapy Without this form of therapy there is delay in treatment trying to access emergency departments with associated copays For this reason Lance has always maintained a small supply of injectable phenylephrine to use outside the hospital setting - which he has done on multiple occasions without any complications or issues - Narrative?review: pathogenesis, diagnosis, and treatment of?sleep-related?painful?erection. Jordan Vogel, Andriy J, Layla Rothman.Transl Androl Urol. 2020;10(12):0827-1233 Recurrent Priapism. Lance has a long history of this problem. He states back as far as 2008. Initially he had been seen and due to his stuttering priapism had been placed on Lupron. Known sickle cell. He was taken off Lupron. He responded well to combination of daily Cialis and finasteride. Eventually it he was no longer or responded to these medications. Subsequently he has been placed on combination of bicalutamide and ketoconazole to try to keep his testosterone down. He carries with him epinephrine in order to treat his almost daily priapism Due to the use of antiandrogen agents he developed gynecomastia. Underwent bilateral mastectomies approximately 2014. Has keloid scarring. T 1083 on flutamide and ketoconazole. LH 45, FSH 9 Lupron 05/11/16 testosterone 06/2016 5, LH 5 Lupron 10/24/1610/23 - full suppression. Testosterone 3. Does have erections and response to stimuli. + facial hair. 04/26 T 11 12/26 GnRH 06/26 GnRH - only occasional priapism 12/27 - Has phenylephrine. Prescription provided - 05/01 - trial combination baclofen and amitriptyline did have control during the day however recurrent at night - 06/01 trial combination amitriptyline with Tizanidine?(to block REM) - 06/29 Trial clonazepam with minimal effect GnRH administration 03/09/20 Review of Systems Const Denies chills and Denies fever(s) Card Reports no additional complaints and Denies syncope Resp Denies cough GI Denies abdominal pain and Denies heartburn Reports as per HPI and Denies change in libido Neuro Denies syncope Psych Denies change in libido Endo Denies change in libido Physical Exam Const General: cooperative, healthy appearing, comfortable and no acute distress Orientation/consciousness: patient oriented x3 HEENT Face and sinus: Yes normal facial exam Mouth: moist mucous membranes Neck Neck: Yes normal visual inspection, Yes full ROM and Yes trachea midline Chest Chest palpation & inspection: normal inspection of the chest Resp Effort & Inspection: normal respiratory effort, able to speak in complete sentences and no respiratory distress GI Inspection: Yes normal to inspection Back/Spine/Pelvis Cervical Spine: normal cervical lordosis Thoracic/Lumbar Spine: thoracic and lumbar spine normal to inspection Skin General skin exam: no rashes or lesions noted Neuro General: patient oriented x3, gait normal, tone normal and moves all extremities Extrem General: Yes normal to inspection and Yes capillary refill normal Assessment & Plan Assessment & Plan (1) Priapism: Code(s): N48.30 - Priapism, unspecified Category: Medical Plan Six-month follow up Medications: Refilled terbutaline 10 mg (2 x 5 mg) PO BEDTIME 90 days 180 tabs 1RF D57.1 - Sickle-cell disease without crisis, N48.30 - Priapism, unspecified phenylephrine HCl 10mg/1ml reconstituted in 10cc normal saline - 1.0cc reconstituted injected every 5 min till priapism resolved 1 mg (0.1 mL) IM .every 10 min PRN 2 mL 10RF hypotension N48.30 - Priapism, unspecified sodium chlor 0.9% bacteriostat 10mg/1ml (of phenylephrine) reconstituted in 10cc normal saline - 1.0cc reconstituted injected every 5 min till priapism resolved 10 mL 5RF N48.30 - Priapism, unspecified Patient Instructions: Imaging studies, laboratory and physical exam results were discussed and reviewed in detail. No major barriers to patient understanding were identified. An opportunity to ask questions regarding the treatment plan was provided. All questions were answered. The patient expressed understanding and agreement with the above treatment plan. The patient is aware they should contact our office by phone for worsening of their current condition or the appearance of new urologic symptoms. Compliance is encouraged with any medications and followup testing that is ordered. It is a privilege to participate in the urologic care of your patient. If you have any questions or concerns regarding treatment for the above conditions, or other urologic issues, please do not hesitate to contact me. The office telephone contact is [phone]. This note is constructed using voice recognition software. While every effort has been made to ensure accuracy demand inspector errors may have been included. Yours sincerely, Dr Reginaldo Parisi MD, JESÚS [facility] - Urology Providers of Expert, Compassionate Care for the Genitourinary System Coding Level of Care Code Est Pt Level 3 (57142) Diagnoses Priapism N48.30
== END 2024-01-23 14:33 | disposition home or self-care (01) ==
PROVIDERS: PCP Internal Medicine; Visit Provider Urology
DX: N48.30 Priapism, unspecified (principal)
CPT/HCPCS: 99213

== ENCOUNTER → 2024-01-23 13:39 | Outpatient (BNVA) | payer MEDICAID, SELFPAY | PROVIDERS: PCP Internal Medicine; Visit Provider Urology | DX: N48.30 Priapism, unspecified (principal) | CPT/HCPCS: 99212 ==

== ENCOUNTER 2024-04-08 13:44 | Outpatient (AMB) | payer MEDICAID, SELFPAY ==
--- NOTE | 2024-04-08 14:01 | A.OFFVIS_ITS ---
Vital Signs 04/08/24 14:03 Height 5 ft 8 in Weight 174 lb 2.643 oz BMI 26.5 BP 122/76 Blood Pressure Location Lt brachial Position Sitting Pulse 61 Intake Visit Reasons: CAT BREEDER/Dr. Jarrett/[facility],mid-Lt atrial enlargement Intake Note: New patient dx mild lt atrial enlargement Primary Mill Roller Required: No Ambulance Assistant: Ambulance Assistant Present Accompanied by: Spouse Allergies No Known Allergies Allergy (Verified 07/24/23 13:11) Medication List - Last Reconciled 04/08/24 by René Ferro MD baclofen 40 mg (2 x 20 mg) PO BEDTIME 90 days MDD 40 mg insulin syringe,safety needle As directed phenylephrine HCl 1 mg (0.1 mL) IM .every 10 min PRN sodium chlor 0.9% bacteriostat 10mg/1ml (of phenylephrine) reconstituted in 10cc normal saline - 1.0cc reconstituted injected every 5 min till priapism resolved terbutaline 10 mg (2 x 5 mg) PO BEDTIME 90 days HPI Comments Details: Iván was referred here for findings on echocardiogram. Patient underwent echocardiogram due to dad's history of dilated cardiomyopathy congestive heart failure with noncompaction cardiomyopathy. Echocardiogram showed mild left atrial enlargement without any clear evidence of noncompaction cardiomyopathy although this study was limited for full evaluation of the same. Patient was noted to have left atrial enlargement. He is currently not having any obvious cardiac symptoms. His main issue currently is priapism related to sickle cell anemia for which she does regular physical activity at intense level to try to prevent and treat his episodes of priapism and says with that he does not have any exertional chest pain or shortness of breath. Denies any orthopnea, PND, leg edema. No prior history of rheumatic fever. He has no history of pulmonary disease. No childhood murmurs. [facility] Family History Father Cardiomyopathy Mother ZONIA (obstructive sleep apnea) Social History Patient Tobacco Use Status: Never used Tobacco Review of Systems Const Denies chills, Denies daytime sleepiness, Denies fatigue, Denies fever(s), Denies frequent falls, Denies poor appetite, Denies snoring, Denies stops breathing during sleep, Denies weakness, Denies weight gain and Denies weight loss Eyes Denies loss of vision ENT Denies dizziness and Denies hearing loss Card Denies chest pain, Denies claudication, Denies leg edema, Denies lightheadedness, Denies palpitations, Denies dyspnea, Denies dyspnea on exertion and Denies orthopnea Resp Denies cough, Denies excessive phlegm production, Denies dyspnea, Denies dyspnea on exertion, Denies snoring and Denies wheezing GI Denies abdominal pain, Denies hematochezia, Denies change in bowel habits, Denies nausea and Denies vomiting Denies dysuria and Denies urinary frequency Musc Denies arthralgias, Denies muscle weakness, Denies numbness and Denies other (frequent falls) Skin/Breast Denies nail changes and Denies rash Neuro Denies Abnormal speech present, Denies dizziness, Denies frequent falls, Denies loss of vision, Denies memory loss, Denies numbness and Denies weakness Psych Denies depression and Denies memory loss Endo Denies fatigue and Denies palpitations Aroldo/Lymph Reports easy bruising and Reports other (anemia) Aller/Immun Denies wheezing Physical Exam Vital Signs: Last Vital Signs Pulse 61 04/08/24 14:03 BP 122/76 04/08/24 14:03 BMI result Body Mass Index 26.5 Const General: cooperative, comfortable, no acute distress, well developed, alert, awake, Physically active and other (Muscular) Nutritional Appearance: average body habitus and well nourished Orientation/consciousness: patient oriented x3 Limitations: no limitations HEENT Head: Yes normocephalic and Yes atraumatic Neck Neck: Yes trachea midline, Yes supple and Yes no JVD Chest Chest palpation & inspection: normal inspection of the chest Resp Effort & Inspection: normal respiratory effort Auscultation: clear to auscultation bilaterally Cardio Jugular venous distension: no JVD Palpation: normal PMI Rate: regular rate Rhythm: regular rhythm Heart sounds: S1 normal heart sound present, S2 normal heart sound present, no click, no gallops and no murmurs GI Auscultation: normal bowel sounds Skin General skin exam: no rashes or lesions noted Neuro General: patient oriented x3 and no focal motor deficits Speech: No Abnormal speech present Extrem General: Yes no clubbing, cyanosis or edema Psych Appearance: grossly normal Office Procedures EKG Details: EKG shows normal sinus rhythm with sinus arrhythmia with moderate voltage criteria for LVH [id number], Complete Assessment & Plan Assessment & Plan (1) Abnormal echocardiogram: Code(s): R93.1 - Abnormal findings on diagnostic imaging of heart and coronary circulation Plan: Mildly abnormal echocardiogram with mild left atrial enlargement in this young man with prior history of sickle cell anemia who performs high-intensity exercise. This could be related to volume overload related to his exercise routine. Although intracardiac shunting needs to be ruled out. Will suggest a cardiac MRI. He also has strong family history of cardiomyopathy and noncompaction cardiomyopathy which can be genetically transmitted. Will suggest and cardiac MRI as above to assess for any structural cardiac abnormalities. This was discussed with him. He understands and agrees. There is low likelihood of other cardiac etiology such as restrictive cardiomyopathy. He has no signs or symptoms of heart failure at this point time. Will follow up if need be Orders: Orders MR cardiac morph fnct w con 1 Month R93.1 - Abnormal findings on diagnostic imaging of heart and coronary circulation Coding Level of Care Code New Pt Level 4 (42211) Diagnoses Abnormal echocardiogram R93.1 CPT Codes EKG - CPT: 28074-[id number], Complete ([id number])
[2024-04-08 14:03] VITALS: BP 122/76; PULSE 61; BMI 26.5
== END 2024-04-08 14:41 | disposition home or self-care (01) ==
PROVIDERS: PCP Internal Medicine; Visit Provider Internal Medicine Cardiovascular Disease
DX: R93.1 Abnormal findings on diagnostic imaging of heart and coronary circulation (principal); D57.1 Sickle-cell disease without crisis; I49.9 Cardiac arrhythmia, unspecified
CPT/HCPCS: 93010; 99214

== ENCOUNTER → 2024-04-08 13:44 | Outpatient (BNVA) | payer MEDICAID, SELFPAY | PROVIDERS: PCP Internal Medicine; Visit Provider Internal Medicine Cardiovascular Disease | DX: R93.1 Abnormal findings on diagnostic imaging of heart and coronary circulation (principal) | CPT/HCPCS: 93005; 99212 ==

== ENCOUNTER 2024-05-12 13:59 | Outpatient (REF) | payer MEDICAID, SELFPAY ==
[2024-05-12 15:07] LABS: Anion Gap 11 (12-20); Blood Urea Nitrogen 13 mg/dL (9-16); Calcium 9.5 mg/dL (8.4-10.2); Carbon Dioxide 27 mmol/L (22-29); Chloride 106 mmol/L (96-108); Estimated Glomerular Filt Rate > 60; Glucose Random 105 mg/dL (60-115); Potassium 4.3 mmol/L (3.3-5.1); Sodium 140 mmol/L (135-145)
--- OUTSIDE RECORDS SUMMARY | 2024-05-12 15:35 | XMS_ITS | Encounter Summary ---
Author Organization [employer] Address [address] [place] [address] Care Team Providers Care Waste Machine Tender Name Role Phone Kirk Jarrett MD Primary Care Provider [phone] Encounter Details Date Type Department Care Team (Late st Contact Info) Description 01/25/2023 Orders Only [facility] [address], [place] [phone] Kirk Jarrett MD [address] [place] [address] Social History Tobacco Use Types Packs/Day Years Used Date Smoking Tobacco: Never Smokeless Tobacco: Never Depression Answer Date Recorded Patient Health Questionnaire-9 Score 0 03/27/2022 Housing Stability Answer Date Recorded What is your housing situation today? I have toni [place] 01/25/[address] you li ve. Do you have problems with any of the following? None of the above 01/25/2023 Food Insecurity Answer Date Recorded Within the past 12 months, y ou worried that your food would run out before you got money to buy more: Never True 01/25/2023 Within the past 12 months,th e food you bought just didn't last and you didn't have enough money to get more: Never True Transportation Answer Date Recorded In the past 12 months, has l ack of transportation kept you from medical appts, meetings, work or from getting things needed for daily living? No 01/25/2023 Utilities Answer Date Recorded In the past 12 months, has t he electric, gas, oil or water company threatened to shut off services in your home? No 01/25/2023 Depression Answer Date Recorded Patient Health Questionnaire-2 Score 0 03/27/2022 Sex and Gender Information Value Date Recorded Sex Assigned at Male 02/06/2022 10:18 AM EDT Legal Sex Male 10:18 AM EDT Gender Identity Male 02/06/2022 10:18 AM EDT Sexual Orientation Straight 02/06/2022 10 :18 AM EDT documented as of this encounter Plan of Treatment Not on file documented as of this encounter Procedures Procedure Name Priority Date/Time Associated Diagnosis Comments URINALYSIS WITH REFLEX TO MICROSCOPIC Routine 01/26/2023 11:24 AM EDT VITAMIN D,25-OH,TOTAL,IA Routine 01/26/2023 11:20 AM EDT GLUCOSE, RANDOM Routine 01/26/2023 11:20 AM EDT VITAMIN D,25-OH,TOTAL,IA Routine 01/25/2023 3:32 PM EDT documented in this encounter Results * Urinalysis with Reflex to Microscopic (01/26/2023 11:24 AM EDT) Color Urine Yellow [facility] Appearance Urine Clear [facility] PH 7.5 5.0 - 9.0 [facility] Glucose Urine UA Negative Negative mg/dL [facility] Urine Blood Negative Negative [facility] Specific [place] - Urine 1.015 1.005 - 1.025 [facility] Urine Protein Negative Neg-Trace mg/dL [facility] Urine Ketones Negative Negative mg/dL [facility] Nitrite Urine Negative Negative [facility] Leukocyte Esterase Urine Negative Negative [facility] 01/26/2023 11:2 4 AM EDT 01/26/2023 2:34 PM EDT us Kirk Jarrett MD LAB URINE ORDERABLES Final Result [facility] [address] [place] [address] [phone] * Vitamin D, 25-Hydroxy, Total, Immunoassay (01/26/2023 11:20 AM EDT) Vitamin D 25-OH Total 33.0 >30 ng/mL [facility] Comment:Health Based Referen ce Values*< 20 ng/mL Cdouxwcot20-14 ng/mL Insufficient> 30 ng/mL Sufficient*Elizabeth HENSLEY. N Engl J Med. 2007;357:266-280Care must be taken in interpreting Vitamin D results fromdifferent laboratories and methodologies. Published datademonstrated that results from patients undergoinghemodialysis may show a negative bias when tested withvarious automated 25-OH vitamin D assays when compared toLC-MS/MS.When testing samples from patients whose predominant form ofVitamin D is Vitamin D2, such as patients receiving VitaminD2 supplementation, results that are subtherapeutic shouldbe confirmed with another method such as LC-MS/MS. 01/26/2023 11:2 0 AM EDT 01/26/2023 2:26 PM EDT us Kirk Jarrett MD LAB BLOOD ORDERABLES Final Result Performing Organization Address City/[facility]/ZIP Co de Phone Number [facility] [address] [place] [address] [phone] * Glucose, Random, Serum (01/26/2023 11:20 AM EDT) Glucose 79 60 - 115 mg/dL [facility] 01/26/2023 11:2 0 AM EDT 01/26/2023 2:26 PM EDT us Kirk Jarrett MD LAB BLOOD ORDERABLES Final Result [facility] [address] [place] [phone] * Vitamin D, 25-Hydroxy, Total, Immunoassay (01/25/2023 3:32 PM EDT) Vitamin D 25-OH Total 35.5 >30 ng/mL [facility] Comment:Health Based Referen ce Values*< 20 ng/mL Ftestckfq57-56 ng/mL Insufficient> 30 ng/mL Sufficient*Elizabeth HENSLEY. N Engl J Med. 2007;357:266-280Care must be taken in interpreting Vitamin D results fromdifferent laboratories and methodologies. Published datademonstrated that results from patients undergoinghemodialysis may show a negative bias when tested withvarious automated 25-OH vitamin D assays when compared toLC-MS/MS.When testing samples from patients whose predominant form ofVitamin D is Vitamin D2, such as patients receiving VitaminD2 supplementation, results that are subtherapeutic shouldbe confirmed with another method such as LC-MS/MS. 01/25/2023 3:32 PM EDT 01/25/2023 5:40 PM EDT Kirk Jarrett MD LAB BLOOD ORDERABLES Final Result [facility] [address] [place] [phone] documented in this encounter Visit Diagnoses Not on filedocumented in this encounter Additional Health Concerns Assessment Noted Time PHQ-9 Depression Total Score: 0 03/27/20 22 2:29 PM EST documented as of this encounter Care Teams Waste Machine Tender Relationship Specialty Start Date End Date Kirk Jarrett MD [address] [place] [phone] PCP - General Internal Medicine 04/09/18 documented as of this encounter
--- OUTSIDE RECORDS SUMMARY | 2024-05-12 15:35 | XMS_ITS | Encounter Summary ---
Author Organization [employer] Address [address] [place] [address] Care Team Providers Care Solar Designer/Installer Name Role Phone Kirk Jarrett MD Primary Care Provider [phone] Encounter Details Date Type Department Care Team (Late st Contact Info) Description 08/23/2023 Orders Only [place] [address] [place] [address] Provider, MD Ruben Social History Tobacco Use Types Packs/Day Years [...] on file documented as of this encounter Visit Diagnoses Not on filedocumented in this encounter Additional Health Concerns Assessment Noted Time PHQ-9 Depression Total Score: 0 03/27/20 22 2:29 PM EST documented as of this encounter Care Teams Solar Designer/Installer Relationship Specialty Start Date End Date Kirk Jarrett MD [address] [place] [phone] PCP - General Internal Medicine 04/09/18 documented as of this encounter
--- OUTSIDE RECORDS SUMMARY | 2024-05-12 15:35 | XMS_ITS | Encounter Summary ---
Author Organization [employer] Address 75 [facility] 7 [place] [address] Care Team Providers Care Gis Professor Name Role Phone Kirk Jarrett MD Primary Care Provider +1 [phone] Reason for Visit * Reason Onset Date Comments Hospital Follow-up 08/27/2023 Encounter Details Date Type Department Care Team ([facility] st Contact Info) Description 08/27/2023 Telephone [facility] MED & PEDS [address] [place], [place] [phone] Kirk Jarrett MD [address] [place] [address] Hospital Follow-up Social History Tobacco Use Types Packs/Day Years [...] AM EDT documented as of this encounter Miscellaneous Notes * Telephone Encounter - Dian Gibson - 08/27/2023 11:45 AM EDT Tc from pt returning call for HDF follow up. Hospital: [facility] Date of admission: 08/20 Discharge date: 08/25 Diagnosed: Sickle Cell Crisis documented in this encounter Plan of Treatment Not on file documented as of this encounter Visit Diagnoses Not on filedocumented in this encounter Additional Health Concerns Assessment Noted Time PHQ-9 Depression Total Score: 0 03/27/20 22 2:29 PM EST documented as of this encounter Care Teams Gis Professor Relationship Specialty Start Date End Date Kirk Jarrett MD [address] [place] [address] PCP - General Internal Medicine 04/09/18 documented as of this encounter
--- OUTSIDE RECORDS SUMMARY | 2024-05-12 15:35 | XMS_ITS | Encounter Summary ---
Author Organization [employer] Address [address] [place] [address] 7 [place] [address] Care Team Providers Care Golf Club Maker Name Role Phone Kirk Jarrett MD Primary Care Provider [phone] Reason for Referral * Consultation (Routine) - Closed Specialty Diagnoses / Procedures Referred By Contac t Referred To Contact Infectious Diseases Diagnoses Sickle cell disease with crisis and other complication (CMS/HCC) Fever and chills Kirk Jarrett MD [address] [place] [address] Phone: tel: fax: Referral ID Status Reason Start Date Expiration Date V isits Requested Visits Authorized [id number] Closed Specialty Services Required 08/29/2023 08/28/2024 1 1 Encounter Details Date Type Department Care Team (Late st Contact Info) Description 08/29/2023 Orders Only [facility] MED & PEDS [address] [place] [address] Kirk Jarrett MD [address] [place] [address] Sickle cell disease with crisis and other complication (CMS/HCC) (Primary Dx); Fever and chills Social History Tobacco Use Types Packs/Day Years [...] as of this encounter Plan of Treatment Scheduled Referrals Name Type Priority Associated Diagnoses Orde r Schedule Referral to Infectious Disease Outpatient Referral Routine Sickle cell disease with crisis and other complication (CMS/HCC) Fever and chills Expected: 08/29/2023 (Approximate), Expires: 08/28/2024 documented as of this encounter Visit Diagnoses Diagnosis Sickle cell disease with crisis and other complication (CMS/HCC)- Primary Fever and chills Fever, unspecified documented in this encounter Additional Health Concerns Assessment Noted Time PHQ-9 Depression Total Score: 0 03/27/20 22 2:29 PM EST documented as of this encounter Care Teams Golf Club Maker Relationship Specialty Start Date End Date Kirk Jarrett MD [address] [place] [address] PCP - General Internal Medicine 04/09/18 documented as of this encounter
--- OUTSIDE RECORDS SUMMARY | 2024-05-12 15:35 | XMS_ITS | Encounter Summary ---
Author Organization [employer] Address 75 [facility] 7t [place] [address] Care Team Providers Care Drapery Installer Name Role Phone Kirk Jarrett MD Primary Care Provider +1 [phone] Encounter Details Date Type Department Care Team (Late st Contact Info) Description 05/12/2024 Orders Only [facility] DEPARTMENT Provider, Generic External Data Social History Tobacco Use Types Packs/Day Years Used Date Smoking Tobacco: Never Smokeless Tobacco: Never Alcohol Answer Date Recorded Frequency of Alcohol Consumption Not on file 02/06/2024 Average Number of Drinks Not on file 024 Frequency of Binge Drinking Not on file 01/09 Score 0 02/06/2024 Depression Answer Date Recorded Patient Health Questionnaire-9 Score 0 02/06/2024 Patient Health Questionnaire-9 Score 0 02/06/2024 Last PHQ-9: Questionnaire Data Not on file 1 Housing Stability Answer Date Recorded What is [...] Date Recorded Patient Health Questionnaire-2 Score 0 02/06/2024 Internet Access Answer Date Recorded Internet Access Q1 Yes 12/07/2023 Internet Access Q2 Not on file 12/07/2023 Sex and Gender Information Value Date Recorded Sex Assigned at Male 02/06/2022 10:18 AM EDT Legal Sex Male 10:18 AM EDT Gender Identity Male 02/06/2022 10:18 AM EDT Sexual Orientation Straight 02/06/2022 10 :18 AM EDT documented as of this encounter Plan of Treatment Not on file documented as of this encounter Procedures Procedure Name Priority Date/Time Associated Diagnosis Comments BASIC METABOLIC PANEL Routine 05/12/2024 2:09 PM EST documented in this encounter Results * (ABNORMAL) Basic Metabolic Panel (05/12/2024 2:09 PM EST) Sodium 140 135 - 145 mmol/L [facility] Potassium 4.3 3.3 - 5.1 mmol/L [facility] Chloride 106 96 - 108 mmol/L [facility] Carbon Dioxide 27 22 - 29 mmol/L [facility] Anion Gap 11(L) 12 - 20 [facility] Urea Nitrogen (BUN) 13 9 - 16 mg/dL [facility] Creatinine, Serum 1.08 0.5 - 1.4 mg/dL [facility] Estimated Glomerular Filt Rate >60 [facility] Comment:Chronic Kidney Disea se: Estimated GFR < 60 mL/min/1.37t2Omkvny Kidney Disease: Estimated GFR < 15 mL/min/1.73m2 Glucose 105 60 - 115 mg/dL [facility] Calcium 9.5 8.4 - 10.2 mg/dL [facility] 05/12/2024 2:09 PM EST 05/12/2024 2:09 PM EST us Generic External Data Provider LAB BLOOD ORDERAB LES Final Result Performing Organization Address [facility]/State/ZIP Co de Phone Number [facility] [address] [place] [address] [phone] documented in this encounter Visit Diagnoses Not on filedocumented in this encounter Additional Health Concerns Assessment Noted Time PHQ-9 Depression Total Score: 0 02/06/20 24 3:56 PM EDT documented as of this encounter Care Teams Drapery Installer Relationship Specialty Start Date End Date Kirk Jarrett MD [address] [place] [address] PCP - General Internal Medicine 04/09/18 documented as of this encounter
--- OUTSIDE RECORDS SUMMARY | 2024-05-12 15:35 | XMS_ITS | Encounter Summary ---
Author Organization [employer] Address [address] [facility] 7t [place] [address] Care Team Providers Care Fruit Farmer Name Role Phone Kirk Jarrett MD Primary Care Provider [phone] Encounter Details Date Type Department Care Team (Late st Contact Info) Description 08/22/2023 Orders Only [facility] [address] [place] [address] Provider, MD Ruben Social History Tobacco Use [...] Procedure Name Priority Date/Time Associated Diagnosis Comments XR LUMBAR SPINE 2-3 VIEWS Routine 08/22/2023 4:20 PM EDT documented in this encounter Results * XR Lumbar Spine 2-3 Views (08/22/2023 4:20 PM EDT) Anatomical Region Laterality Modality Spine, L-spine Radiographic Arabella ging us Historical Provider MD JERRY XR PROCEDURES Final R esult documented in this encounter Visit Diagnoses Not on filedocumented in this encounter Additional Health Concerns Assessment Noted Time PHQ-9 Depression Total Score: 0 03/27/20 22 2:29 PM EST documented as of this encounter Care Teams Fruit Farmer Relationship Specialty Start Date End Date Kirk Jarrett MD [address] [place] [address] PCP - General Internal Medicine 04/09/18 documented as of this encounter
--- OUTSIDE RECORDS SUMMARY | 2024-05-12 15:35 | XMS_ITS | Encounter Summary ---
Author Organization [employer] Address 75 [facility] 7t [place] [address] Care Team Providers Care Anesthesiologists' Assistant Name Role Phone Kirk Jarrett MD Primary Care Provider [phone] [phone] Encounter Details Date Type Department Care Team (Late st Contact Info) Description 08/24/2023 Orders Only [place] [facility] [address] [place] [address] Provider, MD Ruben Social History Tobacco Use [...] Name Priority Date/Time Associated Diagnosis Comments XR ABDOMEN 1 VIEW Routine 08/23/2023 9:15 AM EDT documented in this encounter Results * XR Abdomen 1 View (08/23/2023 9:15 AM EDT) Anatomical Region Laterality Modality Abdomen Radiographic Arabella ging us Historical Provider MD JERRY XR PROCEDURES Final R esult documented in this encounter Visit Diagnoses Not on filedocumented in this encounter Additional Health Concerns Assessment Noted Time PHQ-9 Depression Total Score: 0 03/27/20 22 2:29 PM EST documented as of this encounter Care Teams Anesthesiologists' Assistant Relationship Specialty Start Date End Date Kirk Jarrett MD [address] [place] [address] PCP - General Internal Medicine 04/09/18 documented as of this encounter
--- OUTSIDE RECORDS SUMMARY | 2024-05-12 15:35 | XMS_ITS | Encounter Summary ---
Author Organization [employer] Address 75 [facility] 7 [place] [address] Care Team Providers Care Presales Consultant Name Role Phone Kirk Jarrett MD Primary Care Provider [phone] Reason for Visit * Reason Onset Date Comments Results 04/14/2022 Encounter Details Date Type Department Care Team (Late st Contact Info) Description 04/14/2022 Telephone [facility] MEDICINE [address] [place] [address] Kirk Jarrett MD [address] [place] [address] Results Social History Tobacco Use Types Packs/Day Years [...] Orientation Straight 02/06/2022 10 :18 AM EDT COVID-19 Exposure Response Date Recorded In the last 10 days, have yo u been in contact with someone who was confirmed or suspected to have Coronavirus/COVID-19? No / Unsure 04/06/2022 12:08 PM EST documented as of this encounter Miscellaneous Notes * Telephone Encounter - Concepcion Munoz - 04/14/2022 12:30 PM EST Tc from pt requesting to know their blood type and [facility] IR results. Please contact at [phone] documented in this encounter Plan of Treatment Not on file documented as of this encounter Visit Diagnoses Not on filedocumented in this encounter Additional Health Concerns Assessment Noted Time PHQ-9 Depression Total Score: 0 03/27/20 22 2:29 PM EST documented as of this encounter Care Teams Presales Consultant Relationship Specialty Start Date End Date Kirk Jarrett MD [address] [place] [phone] PCP - General Internal Medicine 04/09/18 documented as of this encounter
--- OUTSIDE RECORDS SUMMARY | 2024-05-12 15:35 | XMS_ITS | Encounter Summary ---
Author Organization [employer] Address [address] [facility] [address] 7t [place] [address] Care Team Providers Care Lawn Service Worker Name Role Phone Kirk Jarrett MD Primary Care Provider [phone] Encounter Details Date Type Department Care Team (Late st Contact Info) Description 08/27/2023 Orders Only [facility] MED & PEDS [address] [place] [address] Provider, MD Ruben Social History Tobacco Use [...] Procedure Name Priority Date/Time Associated Diagnosis Comments CT ABDOMEN PELVIS W CONTRAST Routine 08/24/2023 10:14 AM EDT documented in this encounter Results * CT Abdomen Pelvis w/ Contrast (08/24/2023 10:14 AM EDT) Anatomical Region Laterality Modality Body, Pelvis, Abdomen Computed T omography us Historical Provider MD JERRY CT PROCEDURES Final R esult documented in this encounter Visit Diagnoses Not on filedocumented in this encounter Additional Health Concerns Assessment Noted Time PHQ-9 Depression Total Score: 0 03/27/20 22 2:29 PM EST documented as of this encounter Care Teams Lawn Service Worker Relationship Specialty Start Date End Date Kirk Jarrett MD [address] [place] [id number] PCP - General Internal Medicine 04/09/18 documented as of this encounter
--- OUTSIDE RECORDS SUMMARY | 2024-05-12 15:36 | XMS_ITS | Clinical Summary ---
Author Organization [facility] it Address [address] [place] [address] Care Team Providers Care Cutter Wet Machine Name Role Phone Unavailable Primary Care Provider Unavailabl e Social History Tobacco Use Types Packs/Day Years Used Date Smoking Tobacco: Never Assessed Sex and Gender Information Value Date Recorded Sex Assigned at Not on file Gender Identity Not on file Sexual Orientation Not on file Plan of Treatment Health Maintenance Due Date Last Done Comments HIB Vaccines (1 of 1 - Risk 1-dose series) 10/21/1985 Meningococcal ACWY Vaccine ( 1 - Risk 2-dose series) 1986 Pneumococcal Vaccine: Pediat rics (0 to 5 Years) and At-Risk Patients (6 to 64 Years) (1 of 2 - PCV) 1990 Meningococcal B Vacine (1 of 4 - Increased Risk) 1994 DTaP,Tdap,and Td Vaccines (1 - Tdap) 07/23/2003 Hepatitis B Vaccines (1 of 3 - 19+ 3-dose series) 07/23/2003 Cholesterol Screening (Lipid Panel) 03/11/2022 Depression Screening 03/11/2022 HIV Screening 03/11/2022 Hepatitis C Screening 03/11/2022 Social Influencers of Health Screening 03/11/2022 COVID-19 Vaccine ( - 2023-2 5 season) 2023 Influenza Vaccine (#1) 2023 HPV Vaccines Aged Out No longer eligi ble based on patient's age to complete this topic Hepatitis A Vaccines Aged Out No long er eligible based on patient's age to complete this topic IPV Vaccines Aged Out No longer eligi ble based on patient's age to complete this topic MMR Vaccines Aged Out No longer eligi ble based on patient's age to complete this topic RSV Immunization Patients Un estee 20 months Aged Out No longer eligible b ased on patient's age to complete this topic Varicella Vaccines Aged Out No longer eligible based on patient's age to complete this topic
--- OUTSIDE RECORDS SUMMARY | 2024-05-12 15:36 | XMS_ITS | Encounter Summary ---
Author Organization [employer] Address 75 [facility] 7t [place] [address] Care Team Providers Care Automation Tender Name Role Phone Kirk Jarrett MD Primary Care Provider [phone] [phone] Encounter Details Date Type Department Care Team (Late st Contact Info) Description 02/07/2024 Orders Only [facility] MED & PEDS [address] [place], [place] [phone] Kirk Jarrett MD [address] [place] [address] Keloid scar of skin (Primary Dx) Social History Tobacco Use Types Packs/Day Years [...] as of this encounter Visit Diagnoses Diagnosis Keloid scar of skin- Primary Keloid scar documented in this encounter Additional Health Concerns Assessment Noted Time PHQ-9 Depression Total Score: 0 02/06/20 24 3:56 PM EDT documented as of this encounter Care Teams Automation Tender Relationship Specialty Start Date End Date Kirk Jarrett MD [address] [place] [phone] PCP - General Internal Medicine 04/09/18 documented as of this encounter
--- OUTSIDE RECORDS SUMMARY | 2024-05-12 15:36 | XMS_ITS | Encounter Summary ---
Author Organization [employer] Address 75 [facility] 7 [place] [address] Care Team Providers Care Mobile Paint Specialist Name Role Phone Kirk Jarrett MD Primary Care Provider [phone] Reason for Visit * Reason Onset Date Comments Medication Question 02/07/2024 Encounter Details Date Type Department Care Team ([facility] st Contact Info) Description 02/07/2024 Telephone [facility] MEDICINE [address] [place] [address] Kirk Jarrett MD [address] [place] [address] Medication Question Social History Tobacco Use Types Packs/Day Years [...] encounter Miscellaneous Notes * Telephone Encounter - Kirk Jarrett MD - 02/07/2024 1:42 PM EDT OK. I will write it for him. * Telephone Encounter - Teresa Lane - 02/07/2024 9:04 AM EDT Tc from pt requesting a callback from [place] or PCP.Pt when to pharmacy to get Hydroquinone 4 % pharmacy told pt it has to be prescribe Callback [phone] documented in this encounter Plan of Treatment Not on file documented as of this encounter Visit Diagnoses Not on filedocumented in this encounter Additional Health Concerns Assessment Noted Time PHQ-9 Depression Total Score: 0 02/06/20 24 3:56 PM EDT documented as of this encounter Care Teams Mobile Paint Specialist Relationship Specialty Start Date End Date Kirk Jarrett MD [address] [place] [address] [place] [address] PCP - General Internal Medicine 04/09/18 documented as of this encounter
--- OUTSIDE RECORDS SUMMARY | 2024-05-12 15:36 | XMS_ITS | Encounter Summary ---
Author Organization [employer] Address 75 [facility] 7 [place] [address] Care Team Providers Care Batch Room Technician Name Role Phone Kirk Jarrett MD Primary Care Provider [phone] Reason for Visit * Reason Onset Date Comments Lab Orders 11/26/2023 Encounter Details Date Type Department Care Team (Late st Contact Info) Description 11/26/2023 Telephone [facility] MEDICINE [address] [place] [address] Kirk Jarrett MD [address] [place] [address] Lab Orders Social History Tobacco Use Types Packs/Day Years [...] * Telephone Encounter - Concepcion Munoz - 11/26/2023 3:25 PM EDT Tc from pt requesting an order for EKG , states they were advised by [facility] in order to be scheduled for an appt pt will need a EKG. Also stated they will fax forms over for PCP to review. Please contact at [phone] documented in this encounter Plan of Treatment Not on file documented as of this encounter Visit Diagnoses Not on filedocumented in this encounter Additional Health Concerns Assessment Noted Time PHQ-9 Depression Total Score: 0 03/27/20 22 2:29 PM EST documented as of this encounter Care Teams Batch Room Technician Relationship Specialty Start Date End Date Kirk Jarrett MD [address] [place] [address] PCP - General Internal Medicine 04/09/18 documented as of this encounter
--- OUTSIDE RECORDS SUMMARY | 2024-05-12 15:36 | XMS_ITS | Encounter Summary ---
Author Organization [employer] Address [address] [place] [address] Care Team Providers Care Bridge Maintenance Worker Name Role Phone Kirk Jarrett MD Primary Care Provider [phone] Reason for Referral * Imaging (Routine) - Closed Specialty Diagnoses / Procedures Referred By Contac t Referred To Contact Cardiology Diagnoses Sickle cell disease without crisis (CMS/HCC) Procedures Transthoracic Echo (TTE) Complete Kirk Jarrett MD [address] [place] [address] Phone: tel: fax: [address] Phone: tel: fax: Referral ID Status Reason Start Date Expiration Date V isits Requested Visits Authorized [id number] Closed Perform Procedure 11/27/2023 11/26/2024 1 1 Encounter Details Date Type Department Care Team (Late st Contact Info) Description 11/27/2023 Orders Only [facility] [address] [place], [place] [phone] Kirk Jarrett MD [address] [place] [address] Sickle cell disease without crisis (CMS/HCC) (Primary Dx) Social History Tobacco Use Types [...] of this encounter Plan of Treatment Scheduled Orders Name Type Priority Associated Diagnoses Order Schedule Transthoracic Echo (TTE) Complete Echocardiography Routine Sickle cell disease without crisis (CMS/HCC) Expected: 11/27/2023 (Approximate), Expires: 11/26/2025 documented as of this encounter Visit Diagnoses Diagnosis Sickle cell disease without crisis (CMS/HCC)- 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
--- OUTSIDE RECORDS SUMMARY | 2024-05-12 15:36 | XMS_ITS | Encounter Summary ---
Author Organization [employer] Address 75 [facility] 7 [place] [address] Care Team Providers Care Toy Department Manager Name Role Phone Kirk Jarrett MD Primary Care Provider [phone] Reason for Visit * Reason Onset Date Comments Results 11/16/2023 Encounter Details Date Type Department Care Team (Late st Contact Info) Description 11/16/2023 Telephone [facility] MEDICINE [address] [place] [address] Kirk Jarrett MD [address] [place] [address] Results Social History Tobacco Use Types Packs/Day Years Used Date Smoking Tobacco: Never Smokeless Tobacco: Never Depression Answer Date Recorded Patient Health Questionnaire-9 Score 0 03/27/2022 Housing Stability Answer Date Recorded What is your housing situation today? I have ton[place]a [place] 01/25/[address] you [...] encounter Miscellaneous Notes * Telephone Encounter - Wing Ceci RN - 11/16/2023 2:03 PM EDT Tc to pt to relay that all lab results were normal and that pt has antibodies for H Influenza B. Called [facility] [place] lab and spoke to Yanelis to make sure the H Influ B antibody lab numbers were faxed to use so it can be scanned into pt's chart. * Telephone Encounter - Keisha Wilson - 11/16/2023 10:05 AM EDT Tc from pt requesting a call back with 11/01 lab results. documented in this encounter Plan of Treatment Not on file documented as of this encounter Visit Diagnoses Not on filedocumented in this encounter Additional Health Concerns Assessment Noted Time PHQ-9 Depression Total Score: 0 03/27/20 22 2:29 PM EST documented as of this encounter Care Teams Toy Department Manager Relationship Specialty Start Date End Date Kirk Jarrett MD [address] [place] [id number] PCP - General Internal Medicine 04/09/18 documented as of this encounter
--- OUTSIDE RECORDS SUMMARY | 2024-05-12 15:36 | XMS_ITS | Encounter Summary ---
Author Organization [employer] Address [address] [facility] 7 [place] [address] Care Team Providers Care Fagot Heater Helper Name Role Phone Kirk Jarrett MD Primary Care Provider [phone] Reason for Visit * Reason Onset Date Comments Call Back Request 01/03/2024 Encounter Details Date Type Department Care Team ([facility] st Contact Info) Description 01/03/2024 Telephone [facility] MEDICINE [address] [place] [address] Kirk Jarrett MD [address] [place] [address] Call Back Request Social History Tobacco Use Types Packs/Day Years Used Date Smoking Tobacco: Never Smokeless Tobacco: Never Depression Answer Date Recorded Patient Health Questionnaire-9 Score 0 03/27/2022 Housing Stability Answer Date Recorded What is your housing situation today? I have toni mindi 01/25/[address] you li [...] Recorded Patient Health Questionnaire-2 Score 0 03/27/2022 Internet Access Answer Date Recorded Internet Access [...] Telephone Encounter - Wing Ceci RN - 01/04/2024 9:16 AM EDT Please advise, tc to pt, reports fever two days ago of around 100.4 with some back pain. Took Tylenol that day with reduction in fever. Denies fever, shortness of breath, and back pain. Only positivefor some congestion. Advised patient to retest on Sunday to determine when the nurse visit for the Men B vaccine is to be rescheduled. Also message to be sent to PCP to see if Paxlovid is to be prescribed. Pt verbalized understanding and agreement with plan. * Telephone Encounter - David Rasheed - 01/03/2024 1:29 PM EDT Tc from pt requesting call back regarding today's visit. Pt stated he is testing positive for covidbut feels no symptoms and is unsure on what to do about appt. Please contact pt at [phone]. documented in this encounter Plan of Treatment Not on file documented as of this encounter Visit Diagnoses Not on filedocumented in this encounter Additional Health Concerns Assessment Noted Time PHQ-9 Depression Total Score: 0 03/27/20 22 2:29 PM EST documented as of this encounter Care Teams Fagot Heater Helper Relationship Specialty Start Date End Date Kirk Jarrett MD [address] [place] [phone] PCP - General Internal Medicine 04/09/18 documented as of this encounter
--- OUTSIDE RECORDS SUMMARY | 2024-05-12 15:36 | XMS_ITS | Clinical Summary ---
Author Organization [employer] Address [address] [facility] 7t [place] [address] Care Team Providers Care Manager Front Name Role Phone Kirk Jarrett MD Primary Care Provider [phone] Allergies No known active allergies Medications oxyCODONE (Roxicodone) 30 MG immediate release tablet Take 30 mg by mouth every 6 (six) hours if needed. 2 Active albuterol 108 (90 Base) MCG/ACT inhaler Inhale 2 puffs every 6 (six) hours if needed for wheezing. 18 g 3 3 Active baclofen (Lioresal) 20 MG tablet TAKE 2 TABLET BY MOUTH EVERY NIGHT AT BEDTIME 4 Active naloxone (Narcan) 4 mg/0.1 mL nasal spray CALL 911. SPR CONTENTS OF ONE SPRAYER (0.1ML) INTO ONE NOSTRIL. REPEAT IN 2-3 MIN IF SYMPTOMS OF OPIOID EMERGENCY PERSIST, ALTERNATE NOSTRILS 3 Active OxyCONTIN 10 MG 12 hr tablet Take 10 mg by mouth every 12 (twelve) hours if needed for severe pain. 4 Active Nirmatrelvir&Ri tonavir 300/100 (Paxlovid, 300/100,) 20 x 150 MG & 10 x 100MG tablet therapy pack Take 1 Dose by mouth in the morning and at bedtime. 30 each 4 Active clobetasol (Temovate) 0.05 % ointmentIndicat ions:Keloid of skin Apply topically 2 times daily. 2 times a day x 2 weeks, Once a day x 2 weeks, every other day x 2 weeks. 15 g 4 Active hydroquinone 4 % creamIndication s:Keloid scar of skin Apply topically 2 times daily. 30 mL 4 02/07/20 Active Hospital, Clinic, or Other Facility Administered Medication Ordered Dose Route Frequency Start Date End Date Status triamcinolone acetonide (Kenalog) injection 10 mgIndications:Cheloid of skin 10 mg INTRA-LESION Once 06/05/2023 Active Active Problems Problem Noted Date Diagnosed Date Keloid scar of skin 02/06/2024 Pharyngitis 04/06/2022 Assessment & Plan (04/06/2022 1:44 PM EST): PT with isolated pharyngitis with cervical lymphadenopathy, low grade fever, denies risk for oral GC/Chl in setting of sickle cell disease. Although rapid strep negative, will treat presumptively and send formal culture. Sickle cell anemia 03/27/2022 Priapism 03/27/2022 Family history of diabetes mellitus 03/27/2022 Encounters Date Type Department Care Team Description 05/12/2024 Orders Only GENERIC EXTERNAL DATA DEPARTMENT Provider, Generic External Data 04/10/2024 2:30 PM EST Office Visit [facility] MED & PEDS [address] [place] [phone] Kirk Jarrett MD Priapism (Primary Dx); Sickle cell disease without crisis (CMS/HCC); Keloid scar of skin 04/10/2024 Travel from Last 3 Months Immunizations Name Administration Dates Next Due Hep A, Adult 11/15/2021,05/18/2021 Hep B, adult 09/20/2021,06/30/2021,05/24/2021 Influenza injectable quadriv alent IIV4 with preservative 01/14/2019,03/31/2016,01/12/2015 Influenza injectable quadriv alent preservative free 02/10/2022,01/28/2021,02/16/2020 Influenza, IIV3, injectable 01/22/2014, 3,04/12/2011 Influenza, seasonal, injecta ble, preservative free 01/08/2024 MMR 12/24/2009,11/23/2009 Meningococcal B, Omv 01/08/2024,10/30/2023 Meningococcal MCV4P ACYW-135 09/25/2016,08/01/19 17 Meningococcal Polysaccharide A,C,Y,W-135 TT Conjugate 12/25/2023,10/30/2023 Pneumococcal Conjugate PCV 13 07/27/2016 Pneumococcal Conjugate PCV 20 10/16/2023 Pneumococcal Polysaccharide PPSV23 09/25/2016, TD (adult), 2 Lf tetanus tox oid, preservative free, adsorbed 05/18/2021,03/18/2007 Tdap 01/09/2011 Social History Tobacco Use Types Packs/Day Years Used Date Smoking Tobacco: Never Smokeless Tobacco: Never Tobacco Cessation:Counseling Given: Not Answered Alcohol Answer Date Recorded Frequency of Alcohol [...] Orientation Straight 02/06/2022 10 :18 AM EDT Last Filed Vital Signs Vital Sign Reading Time Taken Comments Blood Pressure 119/77 04/10/2024 2:42 PM EST Pulse 79 04/10/2024 2:42 PM EST Temperature 36.6 ??C (97.8 ??F) 04/10/2024 2:42 PM ES T Respiratory Rate 20 04/10/2024 2:42 PM EST Oxygen Saturation 97% 04/10/2024 2:42 PM EST Inhaled Oxygen Concentration - - Weight 77.8 kg (171 lb 8 oz) 04/10/2024 2:42 PM EST Height 172 cm (5' 7.72 ) 04/10/2024 2:42 PM EST Body Mass Index 26.29 04/10/2024 2:42 PM EST Plan of Treatment Health Maintenance Due Date Last Done Comments HIB Vaccines (1 of 1 - Risk 1-dose series) 10/21/1985 Family Planning (PISQ) 07/23/1999 SDOH Screening 10/28/2024 10/29/2023 Meningococcal B Vaccine (3 of 4 - Increased Risk Bexsero 2-dose series) 01/07/2025 01/08/2024, 10/30/2023 Alcohol/Substance Use Screening 02/05/2025 02/06/2024 Depression Screening 02/05/2025 02/06/2024, 02/06/20 24 COVID-19 Vaccine ( season) 2025 05/16/2021, 12/04/2020, 11/13/2020 Postponed from 12/09/2023 (Patient Refused) Tobacco Screening 04/10/2025 04/10/2024 Lipid Panel 10/04/2026 10/04/2021 Meningococcal Vaccine (4 - Risk 2-dose series) 12/24/2028 12/25/2023, 10/30/2023, 10/30/2023, Additional history exists DTaP/Tdap/Td Vaccines (3 - Td or Tdap) 05/18/2031 05/18/2021, 01/09/2011, 03/18/2007 Zoster Vaccines (1 of 2) 2034 RSV Patients and Patients Aged 60 years or older (1 - 1-dose 75+ series) 07/23/2059 HIV Screening Completed 05/20/2019 Hepatitis B Vaccines Completed 09/20/2021, 06/30/2021, 05/24/2021 Hepatitis A Vaccines Aged Out 11/15/2021, 05/18/19 22 No longer eligible based on patient's age to complete this topic Hepatitis C Screening Completed 01/26/2023 , 05/19/2021, 05/20/2019 Pneumococcal Vaccine: Pediatrics (0 to 5 Years) and At-Risk Patients (6 to 49) Years) Completed 10/16/2023, 09/25/2016, 07/27/2016, Additional history exists Influenza Vaccine Completed 01/08/2024, , 01/28/2021, Additional history exists HPV Vaccines Aged Out No longer eligi ble based on patient's age to complete this topic IPV Vaccines Aged Out No longer eligi ble based on patient's age to complete this topic RSV under 20 months Aged Out No longe r eligible based on patient's age to complete this topic Rotavirus Vaccines Aged Out No longer eligible based on patient's age to complete this topic Procedures Procedure Name Priority Date/Time Associated Diagnosis Comments BASIC METABOLIC PANEL Routine 05/12/2024 2:09 PM EST HEPATITIS PANEL, GENERAL Routine 01/26/2023 11:20 AM EDT Transaminitis LIPID PANEL, STANDARD Routine 10/04/2021 11:56 AM EDT ZZZ HISTORICAL HIV AB/AG Routine 05/20/2019 1:35 PM EST from Last 3 Months or Most Recently Relevant to Health Maintenance Results * (ABNORMAL) Basic Metabolic Panel (05/12/2024 2:09 PM EST) Sodium 140 135 - 145 mmol/L [facility] Potassium 4.3 3.3 - 5.1 mmol/L [facility] Chloride 106 96 - 108 mmol/L [facility] Carbon Dioxide 27 22 - 29 mmol/L [facility] Anion Gap 11(L) 12 - 20 [facility] Urea Nitrogen (BUN) 13 9 - 16 mg/dL [facility] Creatinine, Serum 1.08 0.5 - 1.4 mg/dL [facility] Estimated Glomerular Filt Rate >60 [facility] Comment:Chronic Kidney Disea se: Estimated GFR < 60 mL/min/1.87a9Xbsrit Kidney Disease: Estimated GFR < 15 mL/min/1.73m2 Glucose 105 60 - 115 mg/dL [facility] Calcium 9.5 8.4 - 10.2 mg/dL [facility] 05/12/2024 2:09 PM EST 05/12/2024 2:09 PM EST us Generic External Data Provider LAB BLOOD ORDERAB LES Final Result Performing Organization Address [facility]/ZIP Co de Phone Number [facility] [address] [place] [phone] * Hepatitis Panel, General (01/26/2023 11:20 AM EDT) Hepatitis A IgM Nonreactive Nonreactive [facility] Comment:IgM antibodies to MONROE V not detected; does not exclude earlyacute or recovered HAV infection. ~Hepatitis B Surface Antibody REACTIVE Nonreactive [facility] Comment:REACTIVE: > 11.99 mI U/mL Hepatitis B Core Antibody Nonreactive Nonreactive [facility] Hepatitis C Antibody Nonreactive Nonreactive [facility] Comment:Antibodies to HCV no t detected; does not exclude early acuteHCV infection. Hepatitis B Surface Ag Negative Negative [facility] Blood 01/26/2023 11:2 0 AM EDT 01/26/2023 2:26 PM EDT us Kirk Jarrett MD LAB BLOOD ORDERABLES Final Result [facility] [address] [place] [phone] [phone] * (ABNORMAL) LIPID PANEL, STANDARD (10/04/2021 11:56 AM EDT) Chol/HDLC Ratio 2.5 <5.0 (calc) [facility] Cholesterol, Total 231(H) <200 mg/dL [facility] HDL Cholesterol 93 > OR = 40 mg/dL [facility] LDL Cholesterol 122(H) mg/dL (calc) [facility] Comment: Reference range: <100 ?? Desirable range <100 mg/dL for primary prevention; ?? <70 mg/dL for patients with CHD or diabetic patients ?? with > or = 2 CHD risk factors. ?? LDL-C is now calculated using the Sofy ?? calculation, which is a validated novel method providing ?? better accuracy than the Friedewald equation in the ?? estimation of LDL-C. ?? Bandar BOWLES et al. PATTI. 2013;310(19): 7578-9512 ?? (http://education.Medprex/faq/VOF638) Non-HDL Cholesterol 138(H) <130 mg/dL (calc) [facility] Comment: For patients with diabetes plus 1 major ASCVD risk ?? factor, treating to a non-HDL-C goal of <100 mg/dL ?? (LDL-C of <70 mg/dL) is considered a therapeutic ?? option. Triglycerides 68 <150 mg/dL [facility] 10/04/2021 11:5 6 AM EDT us Kirk Jarrett MD LAB BLOOD ORDERABLES Final Result [facility] [address] * HIV AB/AG (05/20/2019 1:35 PM EST) HIV AG/AB NONREACTIVE NR [facility] Comment: HIV-1 p24 Ag and/or HIV-1/HIV-2 Ab not detected. ?? A test result that is nonreactive does not exclude the possibility of exposure to or infection with HIV-1 and/or HIV-2. Nonreactive results in this assay for individuals with prior exposure to HIV-1 and/or HIV-2 may be due to antigen and antibody levels that are below the limit of detection of this assay. ?? The [employer] Sales Operations Consultant HIV Ag/Ab Combo assay result and supplemental assay results should be interpreted in conjunction with the patient's clinical presentation, history and other laboratory results. ??If the results are inconsistent with clinical evidence, additional testing is suggested to confirm the result. 05/20/2019 1:35 PM EST us Kyle Schmidt MD HISTORICAL/NON ORD ERABLE LABS Final Result Performing Organization Address City/State/[facility] Co de Phone Number [facility] [address] from Last 3 Months or Most Recently Relevant to Health Maintenance Insurance [facility] [employer] * Guarantor: Lance Pedroza Account Type Relation to Patient Date of Phone Billing Address Personal/Family Self [address] [id number] Care Teams Manager Front Relationship Specialty Start Date End Date Kirk Jarrett MD [address] [place] [phone] PCP - General Internal Medicine 04/09/18
== END 2024-05-12 14:00 | disposition home or self-care (01) ==
LOC: HO.LAB 13:59
PROVIDERS: PCP Internal Medicine; Visit Provider Internal Medicine Cardiovascular Disease
DX: N48.30 Priapism, unspecified (principal); D57.1 Sickle-cell disease without crisis
CPT/HCPCS: 36415; 80048

== ENCOUNTER → 2024-07-18 11:31 | Outpatient (BNVA) | payer MEDICAID, SELFPAY | PROVIDERS: PCP Internal Medicine; Visit Provider Internal Medicine Cardiovascular Disease ==

== ENCOUNTER 2024-07-23 15:20 | Outpatient (AMB) | payer MEDICAID, SELFPAY ==
--- NOTE | 2024-07-23 15:20 | MHC.OFFVIS ---
Intake Visit Reasons: 6 month Intake Note: Patient is present for 6M F/U Urology Medication:PHENYLEPHRINE,BACLOFEN,TERBUTALINE Antibiotic Allergy:NONE Blood Thinner:NONE Operations And Maintenance Manager Required: No Allergies No Known Allergies Allergy (Verified 07/23/24 15:22) HPI Comments Details: Lance Pedroza is a very pleasant male. He is a patient of Dr Jarrett. He is seen for the following urologic conditions. - sickle cell anemia with recurrent priapism Telemedicine Evaluation 15 min Consultation Video Passports Ella Video - 08/01 - nightly mix baclofen plus nitric oxide plus turbutaline - has depletion of NO with hemaglobin - severity reduced - discussed trial of other nitrogen oxide species. Willing to try pentoxifylline. - 01/30 - has figured out a way to manage his priapism with combination of medications plus beets + vasodilator - 07/31 responding to high hydration and medications. Does 80 pushups in the morning if has erection. - 06/02 has found stabilization with combination turbutaline and baclofen. Still gets nocturnal erections but finds exercise helps bring it down proximally 80% of the time. Only using injectable phenylephrine every few weeks Needs cardiology referral as father has been diagnosed with non complicated ventricular hypertrophy which is apparently an inherited form of heart failure - 01/29 has lost substantial weight with exercise. Finds the baclofen helpful. Would like to retry terbutaline with baclofen. Prescription provided - 09/29 follow-up from combination trial. Does find baclofen hopeful. Would like to continue while stopping other medications. 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 When this occurs the only emergent management available is direct injection of phenylephrine. Lance has experience with this form of therapy Without this form of therapy there is delay in treatment trying to access emergency departments with associated copays For this reason Lance has always maintained a small supply of injectable phenylephrine to use outside the hospital setting - which he has done on multiple occasions without any complications or issues - Narrative?review: pathogenesis, diagnosis, and treatment of?sleep-related?painful?erection. Jordan Y, Andriy J, Layla H.Transl Androl Urol. 2020;10(15):2530-3017 Recurrent Priapism. Lance has a long history of this problem. He states back as far as 2008. Initially he had been seen and due to his stuttering priapism had been placed on Lupron. Known sickle cell. He was taken off Lupron. He responded well to combination of daily Cialis and finasteride. Eventually it he was no longer or responded to these medications. Subsequently he has been placed on combination of bicalutamide and ketoconazole to try to keep his testosterone down. He carries with him epinephrine in order to treat his almost daily priapism Due to the use of antiandrogen agents he developed gynecomastia. Underwent bilateral mastectomies approximately 2014. Has keloid scarring. T 1083 on flutamide and ketoconazole. LH 45, FSH 9 Lupron 05/11/16 testosterone 06/2016 5, LH 5 Lupron 10/24/1610/23 - full suppression. Testosterone 3. Does have erections and response to stimuli. + facial hair. 04/26 T 11 12/26 GnRH 06/26 GnRH - only occasional priapism 12/27 - Has phenylephrine. Prescription provided - 05/01 - trial combination baclofen and amitriptyline did have control during the day however recurrent at night - 06/01 trial combination amitriptyline with Tizanidine?(to block REM) - 06/29 Trial clonazepam with minimal effect GnRH administration 03/09/20 [facility] Family History Father Cardiomyopathy Mother ZONIA (obstructive sleep apnea) Social History Patient Tobacco Use Status: Never used Tobacco Review of Systems Const All systems reviewed & are unremarkable except as noted in HPI and below Reports no additional complaints Resp Reports no additional complaints GI Reports no additional complaints Reports as per HPI Musc Reports no additional complaints Physical Exam Telemedicine evaluation Appropriate responses Regular breathing rate and rhythm HEENT Head: Yes normal to inspection Ears: hearing grossly normal bilaterally Eyes General: appearance normal, both eyes and all related structures Neck Neck: Yes normal visual inspection Chest Chest palpation & inspection: normal inspection of the chest Resp Effort & Inspection: normal respiratory effort and able to speak in complete sentences Telehealth Telehealth Location of provider rendering services: practice address Location of patient: address on file Patient Identification confirmed using: Name, : Yes Telehealth method: voice only Patient verbally consented to treatment: Yes Patient verbally consented to billing insurance company: Yes Patient informed of any privacy concerns related to visit: Yes Assessment & Plan Assessment & Plan (1) Priapism: Code(s): N48.30 - Priapism, unspecified Category: Medical (2) Sickle cell anemia: Code(s): D57.1 - Sickle-cell disease without crisis Category: Medical Plan Six-month follow-up Medications: New pentoxifylline ER administer with meals 400 mg PO BID 60 tabs 1RF 30 days D57.1 - Sickle-cell disease without crisis, N48.6 - Induration penis plastica Refilled baclofen takes 1x day 40 mg at night 40 mg (2 x 20 mg) PO BEDTIME 180 tabs 1RF 90 days MDD 40 mg D57.1 - Sickle-cell disease without crisis terbutaline 10 mg (2 x 5 mg) PO BEDTIME 180 tabs 1RF 90 days D57.1 - Sickle-cell disease without crisis, N48.30 - Priapism, unspecified Patient Instructions: This note is constructed using voice recognition software. While every effort has been made to ensure accuracy auto parts delivery driver errors may have been included. Imaging studies, laboratory and physical exam results were discussed and reviewed in detail. No major barriers to patient understanding were identified. An opportunity to ask questions regarding the treatment plan was provided. All questions were answered. The patient expressed understanding and agreement with the above treatment plan. The patient is aware they should contact our office by phone for worsening of their current condition or the appearance of new urologic symptoms. Compliance is encouraged with any medications and followup testing that is ordered. It is a privilege to participate in the urologic care of your patient. If you have any questions or concerns regarding treatment for the above conditions, or other urologic issues, please do not hesitate to contact me. The office telephone contact is [phone]. Sincerely, Dr Reginaldo Parisi MD, [facility] - Urology Compassionate Specialist Care for the Genitourinary System Coding Level of Care Code Tele New Pt Level 4 (76388) Diagnoses Priapism N48.30 Sickle cell anemia D57.1
--- OUTSIDE RECORDS SUMMARY | 2024-07-23 17:50 | XMS_ITS | Encounter Summary ---
Author Organization [employer] Address [address] [facility] 7t [place] [address] Care Team Providers Care Welder Fitter Gas Name Role Phone Kirk Jarrett MD Primary Care Provider [phone] Encounter Details Date Type Department Care Team (Late st Contact Info) Description 08/24/2023 Orders Only [facility] [address] [place] [address] Provider, MD Ruben Social History Tobacco Use [...] documented as of this encounter Care Teams Welder Fitter Gas Relationship Specialty Start Date End Date Kirk Jarrett MD [address] [place] [phone] PCP - General Internal Medicine 04/09/18 documented as of this encounter
--- OUTSIDE RECORDS SUMMARY | 2024-07-23 17:50 | XMS_ITS | Encounter Summary ---
Author Organization [employer] Address [address] [facility] 7 [place] [address] Care Team Providers Care Rubber Compounder Formulator Name Role Phone Kirk Jarrett MD Primary Care Provider [phone] Reason for Visit * Reason Onset Date Comments Results 11/16/2023 Encounter Details Date Type Department Care Team (Late st Contact Info) Description 11/16/2023 Telephone [facility] MEDIC[facility] [address] [place] [address] Kirk Jarrett MD [address] [place] [address] Results Social History Tobacco Use Types Packs/Day [...] has antibodies for H Influenza B. Called [facility] lab and spoke to Yanelis to make [...] documented as of this encounter Care Teams Rubber Compounder Formulator Relationship Specialty Start Date End Date Kirk Jarrett MD [address] [place] [phone] PCP - General Internal Medicine 04/09/18 documented as of this encounter
--- OUTSIDE RECORDS SUMMARY | 2024-07-23 17:50 | XMS_ITS | Encounter Summary ---
Author Organization [employer] Address [address] [place] [address] 7 [place] [address] Care Team Providers Care Front End Web Developer Name Role Phone Kirk Jarrett MD Primary Care Provider [phone] Reason for Referral * Consultation (Routine) - Closed Specialty Diagnoses / Procedures Referred By Contac t Referred To Contact Infectious Diseases Diagnoses Sickle cell disease with crisis and other complication (CMS/HCC) Fever and chills Kirk Jarrett MD [address] [place] [address] Phone: tel: fax: Referral ID Status Reason Start Date Expiration Date V isits Requested Visits Authorized [id number] Closed Specialty Services Required 08/29/2023 08/28/2024 1 1 Encounter Details Date Type Department Care Team (Late st Contact Info) Description 08/29/2023 Orders Only [facility] [address] [place] [address] Kirk Jarrett MD [address] [place] [address] Sickle cell disease with crisis and other [...] documented as of this encounter Care Teams Front End Web Developer Relationship Specialty Start Date End Date Kirk Jarrett MD [address] [place] [phone] PCP - General Internal Medicine 04/09/18 documented as of this encounter
--- OUTSIDE RECORDS SUMMARY | 2024-07-23 17:50 | XMS_ITS | Encounter Summary ---
Author Organization [employer] Address [address] 7t [place] [address] Care Team Providers Care Pocket Creaser Name Role Phone Kirk Jarrett MD Primary Care Provider [phone] Encounter Details Date Type Department Care Team (Late st Contact Info) Description 08/27/2023 Orders Only [facility] CHC MED & PEDS [address] [place] [address] Provider, MD Ruben Social History Tobacco Use [...] documented as of this encounter Care Teams Pocket Creaser Relationship Specialty Start Date End Date Kirk Jarrett MD [address] [place] [address] PCP - General Internal Medicine 04/09/18 documented as of this encounter
--- OUTSIDE RECORDS SUMMARY | 2024-07-23 17:50 | XMS_ITS | Encounter Summary ---
Author Organization [employer] Address [address] [facility] 7t [place] [address] Care Team Providers Care Home Health Physical Therapist Name Role Phone Kirk Jarrett MD Primary Care Provider [phone] Encounter Details Date Type Department Care Team (Late st Contact Info) Description 08/22/2023 Orders Only [facility] [address] [place] [address] Provider, MD Ruben Social History Tobacco Use [...] documented as of this encounter Care Teams Home Health Physical Therapist Relationship Specialty Start Date End Date Kirk Jarrett MD [address] [place] [address] PCP - General Internal Medicine 04/09/18 documented as of this encounter
--- OUTSIDE RECORDS SUMMARY | 2024-07-23 17:50 | XMS_ITS | Encounter Summary ---
Author Organization [employer] Address [address] [facility] 7 [place] [address] Care Team Providers Care Taxation Consultant Name Role Phone Kirk Jarrett MD Primary Care Provider [phone] Reason for Visit * Reason Onset Date Comments Hospital Follow-up 08/27/2023 Encounter Details Date Type Department Care Team ([facility] st Contact Info) Description 08/27/[address] [facility] MED & PEDS [address] [place], [place] [phone] Kirk Jarrett MD [address] [place] [address] Hospital Follow-up Social History Tobacco Use Types [...] returning call for HDF follow up. Hospital: [facility] Date of admission: 08/20 Discharge date: 08/25 Diagnosed: Sickle Cell Crisis documented in this encounter Plan of Treatment Not on file documented as of this encounter Visit Diagnoses Not on filedocumented in this encounter Additional Health Concerns Assessment Noted Time PHQ-9 Depression Total Score: 0 03/27/20 22 2:29 PM EST documented as of this encounter Care Teams Taxation Consultant Relationship Specialty Start Date End Date Kirk Jarrett MD [address] [place] [address] PCP - General Internal Medicine 04/09/18 documented as of this encounter
--- OUTSIDE RECORDS SUMMARY | 2024-07-23 17:50 | XMS_ITS | Encounter Summary ---
Author Organization [employer] Address [address] [facility] 7t [place] [address] Care Team Providers Care Change Coordinator Name Role Phone Kirk Jarrett MD Primary Care Provider [phone] Encounter Details Date Type Department Care Team (Late st Contact Info) Description 08/23/2023 Orders Only [facility] [address] [place] [address] Provider, MD Ruben Social History Tobacco Use [...] documented as of this encounter Care Teams Change Coordinator Relationship Specialty Start Date End Date Kirk Jarrett MD [address] [place] [phone] PCP - General Internal Medicine 04/09/18 documented as of this encounter
--- OUTSIDE RECORDS SUMMARY | 2024-07-23 17:50 | XMS_ITS | Encounter Summary ---
Author Organization [employer] Address [address] [facility] 7 [place] [address] Care Team Providers Care Stave Grader Name Role Phone Kirk Jarrett MD Primary Care Provider [phone] Reason for Visit * Reason Onset Date Comments Call Back Request 01/03/2024 Encounter Details Date Type Department Care Team ([facility] st Contact Info) Description 01/03/2024 Telephone [facility] MEDICINE [address] [place] [address] Kirk Jarrett MD [address] [place] [address] Call Back Request Social History Tobacco Use [...] do about appt. Please contact pt at [phone]. documented in this encounter Plan of Treatment Not on file documented as of this encounter Visit Diagnoses Not on filedocumented in this encounter Additional Health Concerns Assessment Noted Time PHQ-9 Depression Total Score: 0 03/27/20 22 2:29 PM EST documented as of this encounter Care Teams Stave Grader Relationship Specialty Start Date End Date Kirk Jarrett MD [address] [place] [phone] PCP - General Internal Medicine 04/09/18 documented as of this encounter
--- OUTSIDE RECORDS SUMMARY | 2024-07-23 17:50 | XMS_ITS | Encounter Summary ---
Author Organization [employer] Address [address] [facility] 7t [place] [address] Care Team Providers Care Waxer Tender Name Role Phone Kirk Jarrett MD Primary Care Provider [phone] Encounter Details Date Type Department Care Team (Late st Contact Info) Description 01/25/2023 Orders Only [facility] CHC MED & PEDS [address] [place], [place] [phone] Kirk Jarrett MD [address] [place] [address] Social History Tobacco Use Types Packs/Day Years [...] (01/26/2023 11:24 AM EDT) Color Urine Yellow [facility] Appearance Urine Clear [facility] PH 7.5 5.0 - 9.0 [facility] Glucose Urine UA Negative Negative mg/dL [facility] Urine Blood Negative Negative [facility] Specific [place] - Urine 1.015 1.005 - 1.025 [facility] Urine Protein Negative Neg-Trace mg/dL [facility] Urine Ketones Negative Negative mg/dL [facility] Nitrite Urine Negative Negative [facility] Leukocyte Esterase Urine Negative Negative [facility] 01/26/2023 11:2 4 AM EDT 01/26/2023 2:34 PM EDT us Kirk Jarrett MD LAB URINE ORDERABLES Final Result [facility] [address] [place] [phone] [phone] * Vitamin D, 25-Hydroxy, Total, Immunoassay (01/26/2023 11:20 AM EDT) Vitamin D 25-OH Total 33.0 >30 ng/mL [facility] Comment:Health Based Referen ce Values*< 20 ng/mL Amuianwgn65-09 ng/mL Insufficient> 30 ng/mL Sufficient*Elizabeth HENSLEY. N [...] BLOOD ORDERABLES Final Result Performing Organization Address City/[facility]/ZIP Co de Phone Number [facility] [address] [place] [address] [phone] * Glucose, Random, Serum (01/26/2023 11:20 AM EDT) Glucose 79 60 - 115 mg/dL [facility] 01/26/2023 11:2 0 AM EDT 01/26/2023 2:26 PM EDT us Kirk Jarrett MD LAB BLOOD ORDERABLES Final Result [facility] [address] [place] [address] [phone] * Vitamin D, 25-Hydroxy, Total, Immunoassay (01/25/2023 3:32 PM EDT) Vitamin D 25-OH Total 35.5 >30 ng/mL [facility] Comment:Health Based Referen ce Values*< 20 ng/mL Oxcxrmdlc48-24 ng/mL Insufficient> 30 ng/mL Sufficient*Elizabeth HENSLEY. N [...] Jarrett MD LAB BLOOD ORDERABLES Final Result [facility] [address] [place] [phone] [phone] documented in this encounter Visit Diagnoses Not on filedocumented in this encounter Additional Health Concerns Assessment Noted Time PHQ-9 Depression Total Score: 0 03/27/20 22 2:29 PM EST documented as of this encounter Care Teams Waxer Tender Relationship Specialty Start Date End Date Kirk Jarrett MD [address] [place] [address] PCP - General Internal Medicine 04/09/18 documented as of this encounter
--- OUTSIDE RECORDS SUMMARY | 2024-07-23 17:50 | XMS_ITS | Encounter Summary ---
Author Organization [employer] Address [address] [place] [address] Care Team Providers Care Supervisor Cook House Name Role Phone Kirk Jarrett MD Primary Care Provider [phone] Reason for Referral * Imaging (Routine) - Closed Specialty Diagnoses / Procedures Referred By Contac t Referred To Contact Cardiology Diagnoses Sickle cell disease without crisis (CMS/HCC) Procedures Transthoracic Echo (TTE) Complete Kirk Jarrett MD [address] [place] [address] Phone: tel: fax: [address] Phone: tel: fax: Referral ID Status Reason Start Date Expiration Date V isits Requested Visits Authorized [id number] Closed Perform Procedure 11/27/2023 11/26/2024 1 1 Encounter Details Date Type Department Care Team (Late st Contact Info) Description 11/27/2023 Orders Only [facility] [address] [place], [place] [phone] Kirk Jarrett MD [address] [place] [phone] Sickle cell disease without crisis (CMS/HCC) (Primary [...] documented as of this encounter Care Teams Supervisor Cook House Relationship Specialty Start Date End Date Kirk Jarrett MD [address] [place] [address] PCP - General Internal Medicine 04/09/18 documented as of this encounter
--- OUTSIDE RECORDS SUMMARY | 2024-07-23 17:51 | XMS_ITS | Encounter Summary ---
Author Organization [employer] Address 75 [facility] 7 [place] [address] Care Team Providers Care Application Analyst Name Role Phone Kirk Jarrett MD Primary Care Provider [phone] Reason for Visit * Reason Onset Date Comments Medication Question 02/07/2024 Encounter Details Date Type Department Care Team ([facility] st Contact Info) Description 02/07/2024 Telephone [facility] MEDICINE [address] [place] [address] Kirk Jarrett MD [address] [place] [address] Medication Question Social History Tobacco Use Types [...] pt it has to be prescribe Callback [phone] documented in this encounter Plan of Treatment Not on file documented as of this encounter Visit Diagnoses Not on filedocumented in this encounter Additional Health Concerns Assessment Noted Time PHQ-9 Depression Total Score: 0 02/06/20 24 3:56 PM EDT documented as of this encounter Care Teams Application Analyst Relationship Specialty Start Date End Date Kirk Jarrett MD [address] [place] [address] [place] [address] PCP - General Internal Medicine 04/09/18 documented as of this encounter
--- OUTSIDE RECORDS SUMMARY | 2024-07-23 17:51 | XMS_ITS | Clinical Summary ---
Author Organization [facility] it Address [address] [place] [address] Care Team Providers Care Tow Motor Operator Name Role Phone Unavailable Primary Care Provider Unavailabl e Social History Tobacco Use Types Packs/Day Years Used Date Smoking Tobacco: Never Assessed Sex and Gender Information Value Date Recorded Sex Assigned at Not on file Legal Sex Male 5:27 PM EST Gender Identity Not on file Sexual Orientation Not on file Plan of Treatment Health Maintenance Due Date Last Done Comments HIB Vaccines (1 of 1 - Risk 1-dose series) 10/21/1985 Meningococcal ACWY Vaccine ( 1 - Risk 2-dose series) 1986 Meningococcal B Vaccine (1 o f 5 - Increased Risk) 1994 DTaP,Tdap,and Td Vaccines (1 - Tdap) 07/23/2003 Hepatitis B Vaccines (1 of 3 - 19+ 3-dose series) 07/23/2003 Pneumococcal Vaccine: Pediat rics (0 to 5 Years) and At-Risk Patients (6 to 64 Years) (1 of 2 - PCV) 07/23/2003 Cholesterol Screening (Lipid Panel) 03/11/2022 Depression Screening 03/11/2022 HIV Screening 03/11/2022 Hepatitis C Screening 03/11/2022 Social Influencers of Health Screening 03/11/2022 COVID-19 Vaccine ( - 2023-2 5 season) 2023 Influenza Vaccine (Season Ended) 2024 HPV Vaccines Aged Out No longer eligi [...]
--- OUTSIDE RECORDS SUMMARY | 2024-07-23 17:51 | XMS_ITS | Encounter Summary ---
Author Organization [employer] Address [address] [facility] 7t [place] [address] Care Team Providers Care Stock Pitcher Name Role Phone Kirk Jarrett MD Primary Care Provider [phone] Encounter Details Date Type Department Care Team (Late st Contact Info) Description 02/07/2024 Orders Only [facility] CHC MED & PEDS [address] [place], [place] [phone] Kirk Jarrett MD [address] [place] [address] Keloid scar of skin (Primary Dx) Social [...] documented as of this encounter Care Teams Stock Pitcher Relationship Specialty Start Date End Date Kirk Jarrett MD [address] [place] [address] PCP - General Internal Medicine 04/09/18 documented as of this encounter
--- OUTSIDE RECORDS SUMMARY | 2024-07-23 17:51 | XMS_ITS | Clinical Summary ---
Author Organization [employer] Address [address] [facility] 7t [place] [address] Care Team Providers Care Acid Maker Name Role Phone Kirk Jarrett MD Primary Care Provider [phone] Allergies No known active allergies Medications oxyCODONE [...] Encounters Date Type Department Care Team Description 06/20/2024 Population Health Risk Score [facility] ([facility] Department [address] [place] [phone] Provider, Population Health Generic 05/12/2024 Orders Only GENERIC EXTERNAL DATA DEPARTMENT Provider, Generic External Data from Last 3 Months Immunizations Name Administration [...] EST) Sodium 140 135 - 145 mmol/L [facility] Potassium 4.3 3.3 - 5.1 mmol/L [facility] Chloride 106 96 - 108 mmol/L [facility] Carbon Dioxide 27 22 - 29 mmol/L [facility] Anion Gap 11(L) 12 - 20 [facility] Urea Nitrogen (BUN) 13 9 - 16 mg/dL [facility] Creatinine, Serum 1.08 0.5 - 1.4 mg/dL [facility] Estimated Glomerular Filt Rate >60 [facility] Comment:Chronic Kidney Disea se: Estimated GFR < 60 mL/min/1.57i3Fsigqi Kidney Disease: Estimated GFR < 15 mL/min/1.73m2 Glucose 105 60 - 115 mg/dL [facility] Calcium 9.5 8.4 - 10.2 mg/dL [facility] 05/12/2024 2:09 PM EST 05/12/2024 2:09 PM EST us Generic External Data Provider LAB BLOOD ORDERAB LES Final Result Performing Organization Address [facility] Co de Phone Number [facility] [address] [place] [phone] * Hepatitis Panel, General (01/26/2023 11:20 AM EDT) Hepatitis A IgM Nonreactive Nonreactive [facility] Comment:IgM antibodies to MONROE V not detected; does not exclude earlyacute or recovered HAV infection. ~Hepatitis B Surface Antibody REACTIVE Nonreactive [facility] Comment:REACTIVE: > 11.99 mI U/mL Hepatitis B Core Antibody Nonreactive Nonreactive [facility] Hepatitis C Antibody Nonreactive Nonreactive [facility] Comment:Antibodies to HCV no t detected; does not exclude early acuteHCV infection. Hepatitis B Surface Ag Negative Negative [facility] Blood 01/26/2023 11:2 0 AM EDT 01/26/2023 2:26 PM EDT us Kirk Jarrett MD LAB BLOOD ORDERABLES Final Result Performing Organization Address [facility]/ZIP Co de Phone Number [facility] [address] [place] [phone] * (ABNORMAL) LIPID PANEL, STANDARD (10/04/2021 11:56 AM EDT) Pathologist [facility] Chol/HDLC Ratio 2.5 <5.0 (calc) [facility] [...] ?? LDL-C is now calculated using the Bandar-James ?? calculation, which is a validated novel method providing ?? better accuracy than the Friedewald equation in the ?? estimation of LDL-C. ?? Bandar BOWLES et al. PATTI. 2013;310(19): 3748-4247 ?? (http://education.CellPhire.Cmune/faq/DWD321) Non-HDL Cholesterol 138(H) <130 mg/dL (calc) [facility] Comment: For patients with diabetes plus 1 major ASCVD risk ?? factor, treating to a non-HDL-C goal of <100 mg/dL ?? (LDL-C of <70 mg/dL) is considered a therapeutic ?? option. Triglycerides 68 <150 mg/dL [facility] 10/04/2021 11:5 6 AM EDT Kirk Jarrett MD LAB BLOOD ORDERABLES Final Result Performing Organization Address City/State/[facility] Co de Phone Number [facility] [address] * HIV AB/AG (05/20/2019 1:35 PM EST) Pathologist [facility] HIV AG/AB NONREACTIVE NR [facility] [...] detection of this assay. ?? The [place] [employer] HIV Ag/Ab Combo assay result and supplemental assay results should be interpreted in conjunction with the patient's clinical presentation, history and other laboratory results. ??If the results are inconsistent with clinical evidence, additional testing is suggested to confirm the result. 05/20/2019 1:35 PM EST Kyle Schmidt MD HISTORICAL/NON ORD ERABLE LABS Final Result [facility] [address] from Last 3 Months or Most Recently Relevant to Health Maintenance Insurance * Guarantor: Lance Pedroza Account Type Relation to Patient Date of Phone Billing Address Personal/Family Self [address] [phone] Care Teams Acid Maker Relationship Specialty Start Date End Date Kirk Jarrett MD [address] [place] [address] PCP - General Internal Medicine 04/09/18
== END 2024-07-23 16:27 | disposition home or self-care (01) ==
LOC: HO.HUSH 15:20
PROVIDERS: PCP Internal Medicine; Visit Provider Urology
DX: N48.30 Priapism, unspecified (principal); D57.1 Sickle-cell disease without crisis
CPT/HCPCS: 99214

== ENCOUNTER 2025-03-11 15:44 | Outpatient (AMB) | payer MEDICAID, SELFPAY ==
--- NOTE | 2025-03-11 16:11 | A.OFFVIS_ITS ---
Intake Visit Reasons: 6M Follow Up(Priprisim) Intake Note: Reason for Visit: Priapism Follow Up Urology Meds: Pentoxifylline, Phenylephrine Blood Thinners: None Labs: None Imaging: None Last PVR: None Accounts Payable Technician Required: No Allergies No Known Allergies Allergy (Verified 03/11/25 16:12) HPI Comments Details: Lance Pedroza is a very pleasant male. He is a patient of Dr Jarrett. He is seen for the following urologic conditions. - sickle cell anemia with recurrent priapism Six-month follow-up - 04/02 continue stability on combination baclofen plus terbutaline plus pe ntoxifylline - 08/01 - nightly mix baclofen plus nitric oxide plus turbutaline - has depletion of NO with hemaglobin - severity reduced - discussed trial of other nitrogen oxide species. Willing to try pentoxifylline. - 01/30 - has figured out a way to manage his priapism with combination of medications plus beets + vasodilator - 07/31 responding to high hydration and medications. Does 80 pushups in the morning if has erection. - 06/02 has found stabilization with combination turbutaline and baclofen. Still gets nocturnal erections but finds exercise helps bring it down proximally 80% of the time. Only using injectable phenylephrine every few weeks Needs cardiology referral as father has been diagnosed with non complicated ventricular hypertrophy which is apparently an inherited form of heart failure - 01/29 has lost substantial weight with exercise. Finds the baclofen helpful. Would like to retry terbutaline with baclofen. Prescription provided - 09/29 follow-up from combination trial. Does find baclofen hopeful. Would like to continue while stopping other medications. 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 When this occurs the only emergent management available is direct injection of phenylephrine. Lance has experience with this form of therapy Without this form of therapy there is delay in treatment trying to access emergency departments with associated copays For this reason Lance has always maintained a small supply of injectable phenylephrine to use outside the hospital setting - which he has done on multiple occasions without any complications or issues - Narrative?review: pathogenesis, diagnosis, and treatment of?sleep- related?painful?erection. Jordan Vogel, Andriy J, Layla Rothman.Transl Androl Urol. 2020;10(31):5746-6163 Recurrent Priapism. Lance has a long history of this problem. He states back as far as 2008. Initially he had been seen and due to his stuttering priapism had been placed on Lupron. Known sickle cell. He was taken off Lupron. He responded well to combination of daily Cialis and finasteride. Eventually it he was no longer or responded to these medications. Subsequently he has been placed on combination of bicalutamide and ketoconazole to try to keep his testosterone down. He carries with him epinephrine in order to treat his almost daily priapism Due to the use of antiandrogen agents he developed gynecomastia. Underwent bilateral mastectomies approximately 2014. Has keloid scarring. T 1083 on flutamide and ketoconazole. LH 45, FSH 9 Lupron 05/11/16 testosterone 06/2016 5, LH 5 Lupron 10/24/1610/23 - full suppression. Testosterone 3. Does have erections and response to stimuli. + facial hair. 04/26 T 11 12/26 GnRH 06/26 GnRH - only occasional priapism 12/27 - Has phenylephrine. Prescription provided - 05/01 - trial combination baclofen and amitriptyline did have control during the day however recurrent at night - 06/01 trial combination amitriptyline with Tizanidine?(to block REM) - 06/29 Trial clonazepam with minimal effect GnRH administration 03/09/20 [facility] Family History Father Cardiomyopathy Mother ZONIA (obstructive sleep apnea) Social History Patient Tobacco Use Status: Never used Tobacco Review of Systems Const Denies chills and Denies fever(s) Card Reports no additional complaints and Denies syncope Resp Denies cough GI Denies abdominal pain and Denies heartburn Reports as per HPI and Denies change in libido Neuro Denies syncope Psych Denies change in libido Endo Denies change in libido Physical Exam Const General: cooperative, healthy appearing, comfortable and no acute distress Orientation/consciousness: patient oriented x3 HEENT Face and sinus: Yes normal facial exam Mouth: moist mucous membranes Neck Neck: Yes normal visual inspection, Yes full ROM and Yes trachea midline Chest Chest palpation & inspection: normal inspection of the chest Resp Effort & Inspection: normal respiratory effort, able to speak in complete sentences and no respiratory distress GI Inspection: Yes normal to inspection Back/Spine/Pelvis Cervical Spine: normal cervical lordosis Thoracic/Lumbar Spine: thoracic and lumbar spine normal to inspection Skin General skin exam: no rashes or lesions noted Neuro General: patient oriented x3, gait normal, tone normal and moves all extremities Extrem General: Yes normal to inspection and Yes capillary refill normal Assessment & Plan Assessment & Plan (1) Sickle cell anemia: Code(s): D57.1 - Sickle-cell disease without crisis Category: Medical (2) Priapism: Code(s): N48.30 - Priapism, unspecified Category: Medical Plan Continue Q six-month follow-up Medications: Changed From pentoxifylline ER administer with meals 400 mg PO BID 30 days 60 tabs 1RF D57.1 - Sickle-cell disease without crisis To pentoxifylline ER administer with meals 400 mg PO BID 180 tabs 1RF 90 days D57.1 - Sickle-cell disease without crisis Refilled baclofen takes 1x day 40 mg at night 40 mg (2 x 20 mg) PO BEDTIME 180 tabs 1RF 90 days MDD 40 mg D57.1 - Sickle-cell disease without crisis Patient Instructions: This note is constructed using voice recognition software. While every effort has been made to ensure accuracy bistro server errors may have been included. Imaging studies, laboratory and physical exam results were discussed and reviewed in detail. No major barriers to patient understanding were identified. An opportunity to ask questions regarding the treatment plan was provided. All questions were answered. The patient expressed understanding and agreement with the above treatment plan. The patient is aware they should contact our office by phone for worsening of their current condition or the appearance of new urologic symptoms. Compliance is encouraged with any medications and followup testing that is ordered. It is a privilege to participate in the urologic care of your patient. If you have any questions or concerns regarding treatment for the above conditions, or other urologic issues, please do not hesitate to contact me. The office telephone contact is [phone]. Sincerely, Dr Reginaldo Parisi MD, [facility] - Urology Compassionate Specialist Care for the Genitourinary System Coding Level of Care Code Est Pt Level 3 (63537) Complex visit Add On G2211 Diagnoses Sickle cell anemia D57.1 Priapism N48.30
--- OUTSIDE RECORDS SUMMARY | 2025-03-11 18:37 | XMS_ITS | Encounter Summary ---
Author Organization [employer] Address [address] [facility] 7 [place] [address] Care Team Providers Care Web Production Artist Name Role Phone Kirk Jarrett MD Primary Care Provider +1 [phone] Encounter Details Date Type Department Care Team (Late st Contact Info) Description 01/12/2025 Orders Only [facility] MED & PEDS [address] [place], [place] [phone] Kirk Jarrett MD [address] [place] [address] Encounter for immunization (Primary Dx) Social History Tobacco Use Types [...] housing situation today? I have toni mindi 11/24/[address] you li ve. Do you have problems with any of the following? None of the above 11/24/2024 Food Insecurity Answer Date Recorded Within the past 12 months, y ou worried that your food would run out before you got money to buy more: Never True 11/24/2024 Within the past 12 months,th e food you bought just didn't last and you didn't have enough money to get more: Never True Transportation Answer Date Recorded In the past 12 months, has l ack of transportation kept you from medical appts, meetings, work or from getting things needed for daily living? No 11/24/2024 Utilities Answer Date Recorded In the past 12 months, has t he electric, gas, oil or water company threatened to shut off services in your home? No 11/24/2024 Depression Answer Date Recorded Patient Health Questionnaire-2 Score 0 02/06/2024 Internet Access Answer Date Recorded Internet Access Q1 Yes 11/24/2024 Internet Access Q2 Not on file 11/24/2024 Sex and Gender Information Value Date Recorded Sex Assigned at Male 02/06/2022 10:18 AM EDT Legal Sex Male 10:18 AM EDT Gender Identity Male 02/06/2022 10:18 AM EDT Sexual Orientation Straight 02/06/2022 10 :18 AM EDT documented as of this encounter Plan of Treatment Not on file documented as of this encounter Visit Diagnoses Diagnosis Encounter for immunization- Primary documented in this encounter Additional Health Concerns Assessment Noted Time PHQ-9 Depression Total Score: 0 02/06/20 24 3:56 PM EDT documented as of this encounter Care Teams Web Production Artist Relationship Specialty Start Date End Date Kirk Jarrett MD [address] [place] [phone] PCP - General Internal Medicine 04/09/18 documented as of this encounter
--- OUTSIDE RECORDS SUMMARY | 2025-03-11 18:37 | XMS_ITS | Encounter Summary ---
Author Organization [employer] Address [address] [facility] 7 [place] [address] Care Team Providers Care Cage Operator Name Role Phone Kirk Jarrett MD Primary Care Provider [phone]- [phone] Reason for Visit * Reason Onset Date Comments Results 11/16/2023 Encounter Details Date Type Department Care Team ([facility] st Contact Info) Description 11/16/2023 Telephone [facility] MEDICINE [address] [place] [address] Kirk Jarrett MD [address] [place] [address] Results Social History Tobacco Use Types Packs/Day [...] t he electric, gas, oil or water [employer] threatened to shut off services in your [...] has antibodies for H Influenza B. Called [facility] and spoke to Yanelis to make [...] documented as of this encounter Care Teams Cage Operator Relationship Specialty Start Date End Date Kirk Jarrett MD [address] [place] [phone] PCP - General Internal Medicine 04/09/18 documented as of this encounter
--- OUTSIDE RECORDS SUMMARY | 2025-03-11 18:37 | XMS_ITS | Encounter Summary ---
Author Organization [employer] Address [address] [facility] [address] 7[address] [place] [address] Care Team Providers Care Jockey Room Custodian Name Role Phone Kirk Jarrett MD Primary Care Provider [phone] [phone] Encounter Details Date Type Department Care Team (Late st Contact Info) Description 08/27/2023 Orders Only [facility] CHC MED & PEDS [address] [place] [address] Provider, MD Ruben Social History Tobacco Use [...] documented as of this encounter Care Teams Jockey Room Custodian Relationship Specialty Start Date End Date Kirk Jarrett MD [address] [place] [phone] PCP - General Internal Medicine 04/09/18 documented as of this encounter
--- OUTSIDE RECORDS SUMMARY | 2025-03-11 18:37 | XMS_ITS | Clinical Summary ---
Author Organization [facility] ity Address [address] [place] [address] Care Team Providers Care Crystalizer Tender Name Role Phone Unavailable Primary Care Provider Unavailabl e Social History Tobacco Use Types Packs/Day Years Used Date Smoking Tobacco: Never Assessed Sex and Gender Information Value Date Recorded Sex Assigned at Not on file Legal Sex Male 5:27 PM EST Gender Identity Not on file Sexual Orientation Not on file Plan of Treatment Health Maintenance Due Date Last Done Comments DTaP,Tdap,and Td Vaccines (1 - Tdap) 07/23/2003 Hepatitis B Vaccines (1 of 3 - 19+ 3-dose series) 07/23/2003 HPV Vaccines (1 - 3-dose SCD M series) 07/23/2011 Cholesterol Screening (Lipid Panel) 03/11/2022 HIV Screening 03/11/2022 Hepatitis C Screening 03/11/2022 Social Influencers of Health Screening 03/11/2022 Depression Screening 04/09/2024 COVID-19 Vaccine (1 - 2024-2 6 season) 2024 Influenza Vaccine (#1) 2024 RSV Immunization Adult Patie nts (1 - 1-dose 75+ series) 07/23/2059 HIB Vaccines Aged Out No longer eligi ble [...] on patient's age to complete this topic Meningococcal ACWY Vaccine Aged Out N o longer eligible based on patient's age to complete this topic Meningococcal B Vaccine Aged Out No l onger eligible based on patient's age to complete this topic Pneumococcal Vaccine: Pediat rics (0 to 5 Years) and At-Risk Patients (6 to 49 Years) Aged Out No longer eligible b ased on patient's age to complete this topic RSV Immunization Patients Un estee 20 months Aged Out No longer eligible b ased on patient's age to complete this topic Varicella Vaccines Aged Out No longer eligible based on patient's age to complete this topic
--- OUTSIDE RECORDS SUMMARY | 2025-03-11 18:37 | XMS_ITS | Encounter Summary ---
Author Organization [employer] Address [address] [facility] 7 [place] [address] Care Team Providers Care Reconditioning Associate Name Role Phone Kirk Jarrett MD Primary Care Provider [phone]- [phone] Reason for Visit * Reason Onset Date Comments Call Back Request 01/03/2024 Encounter Details Date Type Department Care Team (Late st Contact Info) Description 01/03/2024 Telephone [facility] MEDICINE [address] [place] [address] Kirk Jarrett MD [address] [place] [address] Call Back Request Social History Tobacco Use [...] do about appt. Please contact pt at [phone]. documented in this encounter Plan of Treatment Not on file documented as of this encounter Visit Diagnoses Not on filedocumented in this encounter Additional Health Concerns Assessment Noted Time PHQ-9 Depression Total Score: 0 03/27/20 22 2:29 PM EST documented as of this encounter Care Teams Reconditioning Associate Relationship Specialty Start Date End Date Kirk Jarrett MD [address] [place] [phone] PCP - General Internal Medicine 04/09/18 documented as of this encounter
--- OUTSIDE RECORDS SUMMARY | 2025-03-11 18:37 | XMS_ITS | Encounter Summary ---
Author Organization [employer] Address [address] [place] [address] [place] [address] Care Team Providers Care Rn Eligibility Name Role Phone Kirk Jarrett MD Primary Care Provider +1- [phone] Reason for Referral * Consultation (Routine) - Closed Specialty Diagnoses / Procedures Referred By Contac t Referred To Contact Infectious Diseases Diagnoses Sickle cell disease with crisis and other complication (HCC) Fever and chills Kirk Jarrett MD [address] [place] [address] Phone: tel: fax: Referral ID Status Reason Start Date Expiration Date V isits Requested Visits Authorized [id number] Closed Specialty Services Required 08/29/2023 08/28/2024 1 1 Encounter Details Date Type Department Care Team ([facility] st Contact Info) Description 08/29/2023 Orders Only [facility] CHC MED & PEDS [address] [place] [address] Kirk Jarrett MD [address] [place] [address] Sickle cell disease with crisis and other [...] cell disease with crisis and other complication (HCC)- Primary Fever and chills Fever, unspecified documented in this encounter Additional Health Concerns Assessment Noted Time PHQ-9 Depression Total Score: 0 03/27/20 22 2:29 PM EST documented as of this encounter Care Teams Rn Eligibility Relationship Specialty Start Date End Date Kirk Jarrett MD [address] [place] [address] PCP - General Internal Medicine 04/09/18 documented as of this encounter
--- OUTSIDE RECORDS SUMMARY | 2025-03-11 18:37 | XMS_ITS | Encounter Summary ---
Author Organization [employer] Address [address] [facility] 7 [place] [address] Care Team Providers Care Board Certified Arts Therapist Name Role Phone Kirk Jarrett MD Primary Care Provider [phone] [phone] Encounter Details Date Type Department Care Team (Late st Contact Info) Description 08/22/2023 Orders Only [facility] [address] [place] [address] Provider, MD Ruben Social History Tobacco Use [...] Radiographic Arabella ging us Historical Provider MD JRERY XR PROCEDURES Final R esult documented in this encounter Visit Diagnoses Not on filedocumented in this encounter Additional Health Concerns Assessment Noted Time PHQ-9 Depression Total Score: 0 03/27/20 22 2:29 PM EST documented as of this encounter Care Teams Board Certified Arts Therapist Relationship Specialty Start Date End Date Kirk Jarrett MD [address] [place] [id number] PCP - General Internal Medicine 04/09/18 documented as of this encounter
--- OUTSIDE RECORDS SUMMARY | 2025-03-11 18:37 | XMS_ITS | Encounter Summary ---
Author Organization [employer] Address [address] [facility] 7 [place] [address] Care Team Providers Care Patrol Sergeant Name Role Phone Kirk Jarrett MD Primary Care Provider [phone] Encounter Details Date Type Department Care Team (Late st Contact Info) Description 01/25/2023 Orders Only [facility] CHC MED & PEDS [address] [place], [place] [phone] Kirk Jarrett MD [address] [place] [address] Social History Tobacco Use Types Packs/Day Years [...] (01/26/2023 11:24 AM EDT) Color Urine Yellow [facility] Appearance Urine Clear [facility] PH 7.5 5.0 - 9.0 [facility] Glucose Urine UA Negative Negative mg/dL [facility] Urine Blood Negative Negative [facility] Specific [place] - Urine 1.015 1.005 - 1.025 [facility] Urine Protein Negative Neg-Trace mg/dL [facility] Urine Ketones Negative Negative mg/dL [facility] Nitrite Urine Negative Negative [facility] Leukocyte Esterase Urine Negative Negative [facility] 01/26/2023 11:2 4 AM EDT 01/26/2023 2:34 PM EDT us Kirk Jarrett MD LAB URINE ORDERABLES Final Result [facility] [address] [place] [phone] * Vitamin D, 25-Hydroxy, Total, Immunoassay (01/26/2023 11:20 AM EDT) Vitamin D 25-OH Total 33.0 >30 ng/mL [facility] Comment:Health Based Referen ce Values*< 20 ng/mL [id number] ng/mL Insufficient> 30 ng/mL Sufficient*Elizabeth HENSLEY. N [...] Jarrett MD LAB BLOOD ORDERABLES Final Result [facility] [address] [place] [phone] * Glucose, Random, Serum (01/26/2023 11:20 AM EDT) Glucose 79 60 - 115 mg/dL [facility] 01/26/2023 11:2 0 AM EDT 01/26/2023 2:26 PM EDT us Kirk Jarrett MD LAB BLOOD ORDERABLES Final Result [facility] [address] [place] [phone] * Vitamin D, 25-Hydroxy, Total, Immunoassay (01/25/2023 3:32 PM EDT) Vitamin D 25-OH Total 35.5 >30 ng/mL [facility] Comment:Health Based Referen ce Values*< 20 ng/mL [id number] ng/mL Insufficient> 30 ng/mL Sufficient*Elizabeth HENSLEY. N [...] Jarrett MD LAB BLOOD ORDERABLES Final Result [facility] [address] [place] [phone] documented in this encounter Visit Diagnoses Not on filedocumented in this encounter Additional Health Concerns Assessment Noted Time PHQ-9 Depression Total Score: 0 03/27/20 22 2:29 PM EST documented as of this encounter Care Teams Patrol Sergeant Relationship Specialty Start Date End Date Kirk Jarrett MD [address] [place] [phone] PCP - General Internal Medicine 04/09/18 documented as of this encounter
--- OUTSIDE RECORDS SUMMARY | 2025-03-11 18:37 | XMS_ITS | Encounter Summary ---
Author Organization [employer] Address [address] [facility] 7 [place] [address] Care Team Providers Care Skills Instructor Name Role Phone Kirk Jarrett MD Primary Care Provider +1 [phone] Encounter Details Date Type Department Care Team (Late st Contact Info) Description 08/23/2023 Orders Only [facility] [address] [place] [address] Provider, MD Ruben Social History Tobacco Use [...] documented as of this encounter Care Teams Skills Instructor Relationship Specialty Start Date End Date Kirk Jarrett MD [address] [place] [phone] PCP - General Internal Medicine 04/09/18 documented as of this encounter
--- OUTSIDE RECORDS SUMMARY | 2025-03-11 18:37 | XMS_ITS | Encounter Summary ---
Author Organization [employer] Address [address] [facility] 7 [place] [address] Care Team Providers Care Clinical Appeals Reviewer Name Role Phone Kirk Jarrett MD Primary Care Provider +1- [phone] Reason for Visit * Reason Onset Date Comments Medication Question 02/07/2024 Encounter Details Date Type Department Care Team ([facility] st Contact Info) Description 02/07/2024 Telephone [facility] MEDICINE [address] [place] [address] Kirk Jarrett MD [address] [place] [address] Medication Question Social History Tobacco Use Types [...] pt it has to be prescribe Callback [phone] documented in this encounter Plan of Treatment Not on file documented as of this encounter Visit Diagnoses Not on filedocumented in this encounter Additional Health Concerns Assessment Noted Time PHQ-9 Depression Total Score: 0 02/06/20 24 3:56 PM EDT documented as of this encounter Care Teams Clinical Appeals Reviewer Relationship Specialty Start Date End Date Kirk Jarrett MD [address] [place] [address] PRIYA Liao [address] PCP - General Internal Medicine 04/09/18 documented as of this encounter
--- OUTSIDE RECORDS SUMMARY | 2025-03-11 18:37 | XMS_ITS | Encounter Summary ---
Author Organization [employer] Address [address] [facility] 7 [place] [address] Care Team Providers Care Coroner/Medical Examiner Name Role Phone Kirk Jarrett MD Primary Care Provider +1 [phone] Encounter Details Date Type Department Care Team (Late st Contact Info) Description 08/24/2023 Orders Only [facility] [address] [place] [address] Provider, MD Ruben Social History Tobacco Use [...] documented as of this encounter Care Teams Coroner/Medical Examiner Relationship Specialty Start Date End Date Kirk Jarrett MD [address] [place] [address] PCP - General Internal Medicine 04/09/18 documented as of this encounter
--- OUTSIDE RECORDS SUMMARY | 2025-03-11 18:37 | XMS_ITS | Encounter Summary ---
Author Organization [employer] Address [address] [place] [address] Care Team Providers Care Grain Thresher Name Role Phone Kirk Jarrett MD Primary Care Provider [phone]- [phone] Reason for Visit * Reason Onset Date Comments Hospital Follow-up 08/27/2023 Encounter Details Date Type Department Care Team ([facility] st Contact Info) Description 08/27/2023 Telephone [facility] CH[facility] MED & PEDS [address] [place], [place] [phone] Kirk Jarrett MD [address] [place] [address] Hospital Follow-up Social History Tobacco Use Types [...] returning call for HDF follow up. Hospital: [facility] Date of admission: 08/20 Discharge date: 08/25 Diagnosed: Sickle Cell Crisis documented in this encounter Plan of Treatment Not on file documented as of this encounter Visit Diagnoses Not on filedocumented in this encounter Additional Health Concerns Assessment Noted Time PHQ-9 Depression Total Score: 0 03/27/20 22 2:29 PM EST documented as of this encounter Care Teams Grain Thresher Relationship Specialty Start Date End Date Kirk Jarrett MD [address] [place] [id number] PCP - General Internal Medicine 04/09/18 documented as of this encounter
--- OUTSIDE RECORDS SUMMARY | 2025-03-11 18:37 | XMS_ITS | Clinical Summary ---
Author Organization [employer] Address [address] [facility] [address] [place] [address] Care Team Providers Care Aircrewman Name Role Phone Kirk Jarrett MD Primary Care Provider Allergies No known active allergies Medications oxyCODONE [...] other day x 2 weeks. 15 g 10/30/202 4 Active Hospital, Clinic, or Other Facility Administered [...] and send formal culture. Sickle cell anemia ([facility]/HCC) 03/27/2022 Priapism 03/27/2022 Family history of diabetes mellitus 03/27/2022 Encounters Date Type Department Care Team Description 01/20/2025 Travel 01/12/2025 1:45 PM EDT Office Visit [facility] [address] [place] [address] Kirk Jarrett MD Keloid scar of skin (Primary Dx); Sickle cell disease without crisis (CMS/HCC) ([facility]); Encounter for immunization 01/12/2025 Travel 01/12/2025 Orders Only [facility] [address] [place] [address] Kirk Jarrett MD Encounter for immunization (Primary Dx) 01/07/2025 Telephone [facility] [address] [place], [place] [phone] Kirk Jarrett MD Medication Question from Last 3 Months Immunizations Immunization Administration Dates Next Due Hep A, Adult 11/15/2021,05/18/2021 Hep B, adult 09/20/2021,06/30/2021,05/24/2021 Influenza injectable quadriv alent IIV4 with preservative 01/14/2019,03/31/2016,01/12/2015 Influenza injectable quadriv alent preservative free 02/10/2022,01/28/2021,02/16/2020 Influenza, IIV3, injectable 01/22/2014, 3,04/12/2011 Influenza, seasonal, injecta ble, preservative free 01/12/2025,01/08/2024 MMR 12/24/2009,11/23/2009 Meningococcal B, Omv 01/12/2025,01/08/20 24,01/01/2024,10/29 Meningococcal MCV4P ACYW-135 10/30/2023,09/26/19 17,07/31/2016 Meningococcal Polysaccharide A,C,Y,W-135 TT Conjugate 12/25/2023,10/30/2023 Pneumococcal [...] housing situation today? I have toni obregon 11/24/[address] you li [...] Sign Reading Time Taken Comments Blood Pressure 124/72 01/12/2025 2:08 PM EDT Pulse 67 01/12/2025 2:08 PM EDT Temperature 36.6 C (97.9 F) 11/24/2024 1:55 PM EDT Respiratory Rate 20 01/12/2025 2:08 PM EDT Oxygen Saturation 97% 01/12/2025 2:08 PM EDT Inhaled Oxygen Concentration - - Weight 75.8 kg (167 lb) 01/12/2025 2:08 PM EDT Height 172 cm (5' 7.72 ) 01/12/2025 2:08 PM EDT Body Mass Index 25.6 01/12/2025 2:08 PM EDT Plan of Treatment Health Maintenance Due Date Last Done Comments HIB Vaccines (1 of 1 - Risk 1-dose series) 10/21/1985 Alcohol/Substance Use Screening 1996 Family Planning (PISQ) 07/23/1999 HPV Vaccines (1 - Male 3-dose series) 07/23/1999 COVID-19 Vaccine ( season) 2024 05/16/2021, 12/04/2020, 11/13/2020 Depression Screening 02/05/2025 02/06/2024, 02/06/20 24 SDOH Screening 11/24/2025 11/24/2024 Tobacco Screening 01/12/2026 01/12/2025 Disability Screening 01/20/2026 01/20/2025 Lipid Panel 10/04/2026 10/04/2021 Meningococcal B Vaccine (4 of 4 - Increased Risk Bexsero 3-dose series) 01/12/2027 01/12/2025, 01/08/2024, 01/01/2024, Additional history exists Meningococcal Vaccine (4 - Risk 2-dose series) [...] Years) and At-Risk Patients (6 to 49) Years Completed 10/16/2023, 09/25/2016, 07/27/2016, Additional history exists Influenza Vaccine Completed 01/12/2025, , 02/10/2022, Additional history exists IPV Vaccines Aged Out No longer eligi ble based on patient's age to complete this topic RSV under 20 months Aged Out No longe r eligible based on patient's age to complete this topic Rotavirus Vaccines Aged Out No longer eligible based on patient's age to complete this topic Procedures Procedure Name Priority Date/Time Associated Diagnosis Comments GENERAL Routine 01/12/2025 2:59 PM EDT Keloid scar of skin HEPATITIS PANEL, GENERAL Routine 01/26/2023 11:20 AM EDT Transaminitis LIPID PANEL, STANDARD Routine 10/04/2021 11:56 AM EDT ZZZ HISTORICAL HIV AB/AG Routine 05/20/2019 1:35 PM EST from Last 3 Months or Most Recently Relevant to Health Maintenance Results * General (01/12/2025 2:59 PM EDT) Kirk Gonzales MD - 01/12/2025 2:59 PM EDT Kirk Jarrett MD 01/12/2025 3:02 PM General Date/Time: 01/12/2025 2:59 PM Performed by: Kirk Jarrett MD Authorized by: Kirk Jarrett MD Consent: Consent obtained: Verbal Consent given by: Patient Procedure risks and benefits discussed: Yes Patient questions answered: No Patient agrees, verbalizes understanding, and wants to proceed: No Educational handouts given: No Instructions and paperwork completed: Yes [place] protocol: Procedure explained and questions answered to patient or proxy's satisfaction: yes Relevant documents present and verified: no Test results available: no Imaging studies available: no Required blood products, implants, devices, and special equipment available: no Site/side marked: no Immediately prior to procedure, a time out was called: yes Patient identity confirmed: Verbally with patient Indications: Indications: Keloids Procedure specific details: 0.5 mL of Kenalog diluted with 0.5 mL of lidocaine 1% LOT: [id number], Expiratory date to injected. Procedure well-tolerated. Post-procedure details: Procedure completion: Tolerated well, no immediate complications us Kirk Jarrett MD IN CLINIC/BEDSIDE ORDERABLE S Final Result * Hepatitis Panel, General (01/26/2023 11:20 AM EDT) Hepatitis A IgM Nonreactive Nonreactive [facility] Comment:IgM antibodies to [place]ROE V not detected; does not exclude earlyacute or recovered HAV infection. ~Hepatitis B Surface Antibody REACTIVE Nonreactive [facility] Comment:REACTIVE: > 11.99 mI U/mL Hepatitis B Core Antibody Nonreactive Nonreactive [facility] Hepatitis C Antibody Nonreactive Nonreactive [facility] Comment:Antibodies to HCV no t detected; does not exclude early acuteHCV infection. Hepatitis B Surface Ag Negative Negative [facility] Blood 01/26/2023 11:2 0 AM EDT 01/26/2023 2:26 PM EDT us Kirk Jarrett MD LAB BLOOD ORDERABLES Final Result [facility] [address] [place] [phone] * (ABNORMAL) LIPID PANEL, STANDARD (10/04/2021 11:56 AM EDT) Chol/HDLC Ratio 2.5 <5.0 (calc) [facility] Cholesterol, Total 231(H) <200 mg/dL [facility] HDL Cholesterol 93 > OR = 40 mg/dL [facility] LDL Cholesterol 122(H) mg/dL (calc) [facility] Comment: Reference range: <100 Desirable range <100 mg/dL for primary prevention; <70 mg/dL for patients with CHD or diabetic patients with > or = 2 CHD risk factors. LDL-C is now calculated using the Bandar-Jacob calculation, which is a validated novel method providing better accuracy than the Friedewald equation in the estimation of LDL-C. Bandar SS et al. PATTI. 2013;310(19): 7015-6493 (http://education.[employer].nubelo/faq/HIK749) Non-HDL Cholesterol 138(H) <130 mg/dL (calc) [facility] Comment: For patients with diabetes plus 1 major ASCVD risk factor, treating to a non-HDL-C goal of <100 mg/dL (LDL-C of <70 mg/dL) is considered a therapeutic option. Triglycerides 68 <150 mg/dL [facility] 10/04/2021 11:5 6 AM EDT us Kirk Jarrett MD LAB BLOOD ORDERABLES Final Result [facility] [address] * HIV AB/AG (05/20/2019 1:35 PM EST) HIV AG/AB NONREACTIVE NR [facility] Comment: HIV-1 p24 Ag and/or HIV-1/HIV-2 Ab not detected. A test result that is nonreactive does not exclude the possibility of exposure to or infection with HIV-1 and/or HIV-2. Nonreactive results in this assay for individuals with prior exposure to HIV-1 and/or HIV-2 may be due to antigen and antibody levels that are below the limit of detection of this assay. The Pate Knife Glazer HIV Ag/Ab Combo assay result and supplemental assay results should be interpreted in conjunction with the patient's clinical presentation, history and other laboratory results. If the results are inconsistent with clinical evidence, additional testing is suggested to confirm the result. 05/20/2019 1:35 PM EST us Kyle Schmidt MD HISTORICAL/NON ORD ERABLE LABS Final Result [facility] [address] from Last 3 Months or Most Recently Relevant to Health Maintenance Insurance Care Teams Aircrewman Relationship Specialty Start Date End Date Kirk Jarrett MD [address] [place] [phone] PCP - General Internal Medicine 04/09/18
--- OUTSIDE RECORDS SUMMARY | 2025-03-11 18:37 | XMS_ITS | Encounter Summary ---
Author Organization [employer] Address [address] [place] [address] [address] [place] [address] Care Team Providers Care Split Leather Department Supervisor Name Role Phone Kirk Jarrett MD Primary Care Provider [phone] Reason for Referral * Imaging (Routine) - Closed Specialty Diagnoses / Procedures Referred By Contac t Referred To Contact Cardiology Diagnoses Sickle cell disease without crisis (CMS/HCC) (HCC) Procedures Transthoracic Echo (TTE) Complete Kirk Jarrett MD [address] [place] [id number] Phone: tel: fax: [address] [phone] Phone: tel: fax: Referral ID Status Reason Start Date Expiration Date V isits Requested Visits Authorized [id number] Closed Perform Procedure 11/27/2023 11/26/2024 1 1 Encounter Details Date Type Department Care Team (Late st Contact Info) Description 11/27/2023 Orders Only [facility] [address] [place], [place] [phone] Kirk Jarrett MD [address] [place], [place] [phone] Sickle cell disease without crisis (CMS/HCC) (Primary [...] Diagnoses Diagnosis Sickle cell disease without crisis (CMS/HCC) (HCC)- 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
--- OUTSIDE RECORDS SUMMARY | 2025-03-11 18:38 | XMS_ITS | Encounter Summary ---
Author Organization [employer] Address [address] [facility] [address] [place] [address] Care Team Providers Care Gravity Manager Name Role Phone Kirk Jarrett MD Primary Care Provider [phone] Encounter Details Date Type Department Care Team (Late st Contact Info) Description 02/07/2024 Orders Only [facility] [address] [place], [place] [phone] Kirk Jarrett MD [address] [place] [address] Keloid scar of skin (Primary Dx) Social [...] documented as of this encounter Care Teams Gravity Manager Relationship Specialty Start Date End Date Kirk Jarrett MD [address] [place] [id number] PCP - General Internal Medicine 04/09/18 documented as of this encounter
== END 2025-03-11 16:41 | disposition home or self-care (01) ==
LOC: HO.HUSH 15:45
PROVIDERS: PCP Internal Medicine; Visit Provider Urology
DX: D57.1 Sickle-cell disease without crisis (principal); N48.30 Priapism, unspecified
CPT/HCPCS: 99213

== ENCOUNTER → 2025-03-11 15:44 | Outpatient (BNVA) | payer MEDICAID, SELFPAY | PROVIDERS: PCP Internal Medicine; Visit Provider Urology | DX: D57.1 Sickle-cell disease without crisis (principal); N48.30 Priapism, unspecified; Z79.899 Other long term (current) drug therapy | CPT/HCPCS: 99212 ==